=== PATIENT | male | born 1955 | race Caucasian/White ===

== ENCOUNTER 2017-04-25 23:18 | Emergency (ER) | payer MEDICARE, MEDICAID ==
[2017-04-26] MEDS ORDERED: LIDOCAINE 1% INJ-PF (10 MG/ML) 30 ML SDV INJ ONE (01:26)
[2017-04-26] MEDS ORDERED: ACETAMINOPHEN 325 MG TABLET PO ONE ×2 (01:27→08:00)
--- NOTE | 2017-04-26 03:24 | RADIOLOGY REPORT (SQ) ---
EXAM DESCRIPTION: TOE RIGHT CLINICAL HISTORY: pain and swelling COMPARISON: None. FINDINGS: 3 views of the right first toe. Osteopenia. Partial dorsal dislocation of the first distal phalanx with overlying soft tissue edema. No lytic osseous lesions. No definite fracture identified. IMPRESSION: 1. Partial dorsal dislocation of the right first distal phalanx with overlying soft tissue edema. No fracture identified.
[2017-04-26] MEDS ORDERED: CEPHALEXIN 500 MG CAPSULE PO ONE (03:49)
[2017-04-26] MEDS ORDERED: SULFAMETHOXAZOLE/TRIMETHOPRIM 800-160 MG TABLET PO ONE (03:49)
--- NOTE | 2017-04-26 03:49 | ER Document Report ---
ED Extremity Problem, Lower - General Chief Complaint: Toe Injury Stated Complaint: TOENAIL PAIN Time Seen by Provider: 04/26/17 01:01 Notes: Patient is a 62-year-old male who is a resident at [facility] he was sent over for an ingrown toenail on his right foot in his big toe. Patient states it has been there for a couple of days denies any fevers or chills. Admits to pain when he tries to walk and when it is touched. States he has been soaking it at his facility in warm water but staff wanted to have it evaluated this evening. TRAVEL OUTSIDE OF THE [place] IN LAST 30 DAYS: No - Related Data Allergies/Adverse Reactions: No Known Allergies Allergy (Unverified 07/11/13 00:54) Past Medical History - Social History Smoking Status: Unknown if Ever Smoked Family History: Reviewed & Not Pertinent, Other - unknown Patient has suicidal ideation: No Patient has homicidal ideation: No - Past Medical History Cardiac Medical History: Reports: Hx Hypertension - Low BP Pulmonary Medical History: Denies: Hx Tuberculosis Endocrine Medical History: Denies: Hx Graves' Disease, Hx Hyperthyroidism, Hx Hypothyroidism Renal/ Medical History: Reports: Hx Benign Prostatic Hyperplasia. Denies: Hx Peritoneal Dialysis GI Medical History: Reports: Hx Gastroesophageal Reflux Disease Psychiatric Medical History: Reports: Hx Schizoaffective Disorder, Hx Schizophrenia Past Surgical History: Denies: Hx Pacemaker - Immunizations Hx Diphtheria, Pertussis, Tetanus Vaccination: Yes Hx Pneumococcal Vaccination: 06/13/11 Review of Systems - Review of Systems -: Yes ROS unobtainable due to patient's medical condition Physical Exam - Vital signs Vitals: Temp Pulse BP Pulse Ox 98.0 F 67 126/86 H 98 04/25/17 23:28 04/25/17 23:28 04/25/17 23:28 04/25/17 23:28 - General General appearance: Appears well, Alert In distress: None - Cardiovascular Pulses: Normal: Dorsalis pedis Normal capillary refill: Yes - Extremities Foot: Tender, Deformity - Both distal phalanx of the great toe appear to be partially dorsally and medially dislocated and appears to be chronic., Nail injury - purulent material underneath the nailbed. nail with evidence of fungal infection. puncture wound on the tip of the toe with the entire toe erythemaous and swollen, Puncture wound. No: Unable to bear weight Course - Re-evaluation Re-evalutation: 04/26/17 01:30 Patient is a 62-year-old male who is hemodynamic stable, no acute distress and afebrile. No evidence of osteo-noted on x-ray with dislocation noted on x-ray which appears to be chronic given same presentation of the big toe on the unaffected foot. Nail trephination was performed given site to harbor bacteria with concerns of the puncture wound. Patient to perform warm soaks and discharged on antibiotics and to follow-up with podiatry. - Vital Signs Vital signs: Temp Pulse Resp BP Pulse Ox 97.8 F 76 18 128/80 H 94 04/26/17 07:59 04/26/17 07:59 04/26/17 07:59 04/26/17 07:59 04/26/17 07:59 - Diagnostic Test Radiology reviewed: Image reviewed, Reports reviewed Procedures - Nail Trephanation/Removal Right Great toe Nail Trepanation/Removal Location: right great toe Betadine prep applied: Yes Sterile Dressing Applied: Yes Discharge - Discharge Clinical Impression: Puncture wound, Injury of nail Condition: Good Disposition: HOME, SELF-CARE Instructions: Ingrown Nail ([facility]), Puncture Wound ([facility]) Additional Instructions: Simple avulsionsshould be soaked in warm water 24 to 48 hours after the procedure. Before removal of the dressing, I recommend that patients soak their digit in the shower or in a bowl to avoid bleeding and pain when the dressing is removed. A gelatinous film of epithelium is likely to appear over the exposed nail bed and can be gently removed with dilute hydrogen peroxide on a cotton-tipped applicator. The cotton tip should be rolled over the site gently, avoiding rubbing or vigorous attempts at tissue removal. A small amount of petrolatum or antibiotic ointment is placed on the tissue, then it is covered with an adhesive bandage for a simple avulsion or roller gauze. This dressing change should be repeated daily. Prescriptions: Cephalexin Monohydrate [Keflex 500 mg Capsule] 500 mg PO Q6H 5 Days capsule Sulfamethoxazole/Trimethoprim [Bactrim Ds Tablet] 1 each PO BID #10 tablet Referrals: SUMANTH OROZCO FNP [Primary Care Provider] - Follow up as needed KHAI VALDERRAMA DPM [ACTIVE STAFF] - Follow up in 3-5 days
[2017-04-26 08:16] VITALS: BP 128/80
== END 2017-04-26 08:50 | disposition home or self-care (01) ==
LOC: ER 23:18
PROC: 0HDRXZZ Extraction of Toe Nail, External Approach (ICD-10-PCS; principal; 2017-04-25)
DX: S91.231A Puncture wound without foreign body of right great toe with damage to nail, initial encounter (principal); X58.XXXA Exposure to other specified factors, initial encounter
CPT/HCPCS: 99283; 73660; 11730; A9270 ×3; J3490

== ENCOUNTER 2017-04-29 08:01 | Emergency (ER) | payer MEDICARE, MEDICAID ==
--- NOTE | 2017-04-29 08:35 | ER Document Report ---
ED Extremity Problem, Lower - General Chief Complaint: Toe Injury Stated Complaint: LEFT TOE PAIN Time Seen by Provider: 04/29/17 08:31 Notes: The patient is a 62-year-old male, past medical history schizophrenia, schizoaffective disorder, prior history of MRSA, presents from [facility] with evaluation for his right big toe. He was seen in the ER 4 days ago and started on Keflex for infected toenail. The patient says that his pain has improved slightly. [facility] staff also said that patient was altered, but EMS, who is familar with the patient, said that his mental status is at baseline. He is AAO 3 and has no other complaints. He denies fevers, increased drainage from the wound, streaking up his leg, headache, chest pain, shortness of breath, neck stiffness or back pain. TRAVEL OUTSIDE OF THE [place] IN LAST 30 DAYS: No - Related Data Allergies/Adverse Reactions: No Known Allergies Allergy (Verified 04/29/17 08:24) Past Medical History - General Information source: Patient - Social History Smoking Status: Unknown if Ever Smoked Family History: Reviewed & Not Pertinent, Other - unknown Patient has suicidal ideation: No Patient has homicidal ideation: No - Past Medical History Cardiac Medical History: Reports: Hx Hypertension - Low BP Pulmonary Medical History: Denies: Hx Tuberculosis Endocrine Medical History: Denies: Hx Graves' Disease, Hx Hyperthyroidism, Hx Hypothyroidism Renal/ Medical History: Reports: Hx Benign Prostatic Hyperplasia. Denies: Hx Peritoneal Dialysis GI Medical History: Reports: Hx Gastroesophageal Reflux Disease Psychiatric Medical History: Reports: Hx Schizoaffective Disorder, Hx Schizophrenia Past Surgical History: Denies: Hx Pacemaker - Immunizations Hx Diphtheria, Pertussis, Tetanus Vaccination: Yes Hx Pneumococcal Vaccination: 06/13/11 Review of Systems - Review of Systems Notes: REVIEW OF SYSTEMS: CONSTITUTIONAL: -fevers, -chills EENT: -eye pain, -difficulty swallowing, -nasal congestion CARDIOVASCULAR:-chest pain, -syncope. RESPIRATORY: -cough, -SOB GASTROINTESTINAL: -abdominal pain, -nausea, -vomiting, -diarrhea GENITOURINARY: -dysuria, -hematuria MUSCULOSKELETAL: -back pain, -neck pain, +right toenail pain SKIN: -rash or skin lesions. HEMATOLOGIC: -easy bruising or bleeding. LYMPHATIC: -swollen, enlarged glands. NEUROLOGICAL: -altered mental status or loss of consciousness, -headache, - neurologic symptoms PSYCHIATRIC: -anxiety, -depression. ALL OTHER SYSTEMS REVIEWED AND NEGATIVE. Physical Exam - Notes Notes: PHYSICAL EXAMINATION: GENERAL: Well-appearing, well-nourished and in no acute distress. HEAD: Atraumatic, normocephalic. EYES: Pupils equal round and reactive to light, extraocular movements intact, sclera anicteric, conjunctiva are normal. ENT: nares patent, oropharynx clear without exudates. Moist mucous membranes. NECK: Normal range of motion, supple without lymphadenopathy LUNGS: Breath sounds clear to auscultation bilaterally and equal. No wheezes rales or rhonchi. HEART: Regular rate and rhythm without murmurs ABDOMEN: Soft, nontender, normoactive bowel sounds. No guarding, no rebound. No masses appreciated. EXTREMITIES: Mild erythema around right 1st toe. Small amount of yellow drainage from toenail. No streaking of redness. Non-tender. NEUROLOGICAL: AAOx3. 5/5 strength in all 4 extremities. PSYCH: Normal mood, normal affect. SKIN: Warm, Dry, normal turgor, no rashes or lesions noted. Course - Re-evaluation Re-evalutation: Patient appears well and his vital signs are stable. He is AAO3 and has no other complaints other than his right toenail pain. It appears well and does not appear to have progressed into cellulitis. Looking through records 4 days ago, patient had a negative x-ray for osteomyelitis. His prior cultures grew out MRSA, so we will switch him from Keflex to Bactrim DS with strict return precautions. His mental status is at baseline and he has no focal neuro deficits. He does not appear to be septic. Discharge - Discharge Clinical Impression: Infection of toenail Condition: Stable Disposition: HOME, SELF-CARE Additional Instructions: Take the Bactrim instead of the Keflex to help with your toenail infection. Follow-up with your primary care physician. MRSA CELLULITIS: You have an infection of your skin and underlying soft tissues called cellulitis. This is due to bacteria, which can enter through any break in the skin, or even through an irritated hair follicle. Untreated, cellulitis will usually worsen and may form an abscess which requires draining. Although many bacterial organisms can cause cellulitis and abscess formations, the most likely bacteria is Methicillin-Resistant Staph Aureus, or MRSA for short. Antibiotics are required. Usually, warm packs or warm soaks, and elevation of the infected area are recommended. You should start getting better within 24 to 36 hours. Most infections respond quickly to the right medication. Follow-up care is important, however, to check for abscess (boil) formation, unsuspected foreign body, or resistant infection. If you develop fever, chills, or if the area of infection is becoming rapidly more swollen or painful, call the doctor at once. ANTIBIOTIC THERAPY: You have been given an antibiotic prescription. It's important that you take all the medication, unless instructed otherwise by your physician. Failure to complete the entire course can result in relapse of your condition. Common side effects of antibiotics include nausea, intestinal cramping, or diarrhea. Women may develop vaginal yeast infections, and babies can get yeast (thrush) in the mouth following the use of antibiotics. Contact your physician if you develop significant side effects from this medication. Allergy to this antibiotic can result in hives, wheezing, faintness, or itching. If symptoms of allergy occur, stop the medication and call the doctor. TRIMETHOPRIM-SULFA: You have been given a prescription for trimethoprim-sulfa (TMS, Septra, Bactrim). This is a combination antibiotic of the sulfa class, often used for urinary tract infections, middle ear infections, bronchitis, shigella intestinal infection, and Pneumocystis pneumonia. TMS is usually well-tolerated. Occasional side effects include nausea and decreased appetite. Septra is not recommended for infants less than two months of age. Do not take this medication if you have experienced severe side effects or allergy to sulfa medicine. You should stop this medicine at once and contact your physician if you develop any rash, joint pain, shortness of breath, bruising, or jaundice ( yellow color in the skin), or if you develop any other new or unusual symptoms. FOLLOW-UP CARE: If you have been referred to a physician for follow-up care, call the physician s office for an appointment as you were instructed or within the next two days. If you experience worsening or a significant change in your symptoms, notify the physician immediately or return to the Emergency Department at any time for re-evaluation. Prescriptions: Sulfamethoxazole/Trimethoprim [Bactrim Ds Tablet] 1 each PO BID 10 Days tablet Referrals: SUMANTH OROZCO FNP [Primary Care Provider] - Follow up as needed
[2017-04-29] MEDS ORDERED: SULFAMETHOXAZOLE/TRIMETHOPRIM 800-160 MG TABLET PO ONE (08:36)
[2017-04-29 09:21] VITALS: BP 109/71
== END 2017-04-29 09:21 | disposition home or self-care (01) ==
LOC: ER 08:01
DX: L08.9 Local infection of the skin and subcutaneous tissue, unspecified (principal); F25.9 Schizoaffective disorder, unspecified; Z86.14 Personal history of Methicillin resistant Staphylococcus aureus infection
CPT/HCPCS: 99284; A9270

== ENCOUNTER 2017-08-03 18:17 | Emergency (ER) | payer MEDICARE, MEDICAID ==
--- NOTE | 2017-08-03 18:55 | ER Document Report ---
ED Medical Screen (RME) - General Chief Complaint: Abdominal Pain Stated Complaint: ABDOMINAL PAIN Time Seen by Provider: 08/03/17 18:54 Notes: Patient is sent from assisted living facility with a history of abdominal pain and diarrhea. Patient states he feels better now and his abdominal pain is gone. On exam at triage patient no longer has abdominal pain. Patient is on lactulose. TRAVEL OUTSIDE OF THE [place] IN LAST 30 DAYS: No - Related Data Allergies/Adverse Reactions: No Known Allergies Allergy (Verified 08/03/17 18:19) Past Medical History - Past Medical History Cardiac Medical History: Reports: Hx Hypertension - Low BP Pulmonary Medical History: Denies: Hx Tuberculosis Endocrine Medical History: Denies: Hx Graves' Disease, Hx Hyperthyroidism, Hx Hypothyroidism Renal/ Medical History: Reports: Hx Benign Prostatic Hyperplasia. Denies: Hx Peritoneal Dialysis GI Medical History: Reports: Hx Gastroesophageal Reflux Disease Psychiatric Medical History: Reports: Hx Schizoaffective Disorder, Hx Schizophrenia Past Surgical History: Denies: Hx Pacemaker - Immunizations Hx Diphtheria, Pertussis, Tetanus Vaccination: Yes Physical Exam - Vital signs Vitals: Temp Pulse Resp BP Pulse Ox 97.5 F 63 16 108/67 99 08/03/17 18:32 08/03/17 18:32 08/03/17 18:32 08/03/17 18:32 08/03/17 18:32 Course - Vital Signs Vital signs: Temp Pulse Resp BP Pulse Ox 97.5 F 63 16 108/67 99 08/03/17 18:32 08/03/17 18:32 08/03/17 18:32 08/03/17 18:32 08/03/17 18:32
[2017-08-03 19:45] LABS: ABSOLUTE BASOPHILS # (AUTO) 0.1 10^3/uL (0.0-0.2); ABSOLUTE EOSINOPHILS # (AUTO) 0.1 10^3/uL (0.0-0.6); ABSOLUTE MONOCYTES (AUTO) 0.5 10^3/uL (0.1-1.4); ABSOLUTE NEUT (AUTO) 3.7 10^3/uL (1.7-8.2); BASOPHILS % (AUTO) 1.5 % (0-2); EOSINOPHILS % (AUTO) 2.2 % (0-6); HEMATOCRIT 39.5 % (37.9-51.0); HEMOGLOBIN 13.2 g/dL (13.5-17.0); LYMPHOCYTES % (AUTO) 30.7 % (13-45); MEAN CORPUSCULAR HEMOGLOBIN 29.5 pg (27.0-33.4); MEAN CORPUSCULAR HGB CONC 33.3 g/dL (32.0-36.0); MEAN CORPUSCULAR VOLUME 88 fl (80-97); MONOCYTES % (AUTO) 8.5 % (3-13); PLATELET COUNT 249 10^3/uL (150-450); RED BLOOD COUNT 4.47 10^6/uL (4.35-5.55); RED CELL DISTRIBUTION WIDTH 15.3 % (11.5-14.0); SEGMENTED NEUTROPHILS % (AUTO) 57.1 % (42-78); TOTAL CELLS COUNTED % (AUTO) 100 %; WHITE BLOOD COUNT 6.4 10^3/uL (4.0-10.5)
[2017-08-03 20:03] LABS: ALANINE AMINOTRANSFERASE 23 U/L (21-72); ALBUMIN 4.4 g/dL (3.5-5.0); ALKALINE PHOSPHATASE 83 U/L (38-126); ANION GAP 10 (5-19); ASPARTATE AMINO TRANSFERASE 15 U/L (17-59); BILIRUBIN,DIRECT 0.3 mg/dL (0.0-0.4); BILIRUBIN,TOTAL 0.3 mg/dL (0.2-1.3); BLOOD UREA NITROGEN 13 mg/dL (7-20); CALCIUM 9.6 mg/dL (8.4-10.2); CARBON DIOXIDE 29 mmol/L (22-30); CHLORIDE 105 mmol/L (98-107); GLUCOSE 99 mg/dL (75-110); POTASSIUM 4.4 mmol/L (3.6-5.0); SODIUM 144.4 mmol/L (137-145); TOTAL PROTEIN 7.7 g/dL (6.3-8.2)
[2017-08-03] MEDS ORDERED: DICYCLOMINE HCL INJ 20 MG/2 ML AMPULE IM PRN (23:52)
--- NOTE | 2017-08-04 00:04 | ER Document Report ---
ED General - General Mode of Arrival: Ambulatory Information source: Patient TRAVEL OUTSIDE OF THE [place] IN LAST 30 DAYS: No <KODY LAWLER - Last Filed: 08/04/17 01:12> <TRACEY EPPS - Last Filed: 08/04/17 03:49> - General Chief Complaint: Abdominal Pain Stated Complaint: ABDOMINAL PAIN Time Seen by Provider: 08/03/17 18:54 Notes: Patient is a 62-year-old male with a history of schizophrenia presents to the emergency department from [facility] complaining of abdominal pain onset today. Upon arrival to the emergency department the patient states that he was no longer having any abdominal pain. At bedside patient specifically states that his "insides hurt". When asked when his last bowel movement was patient states he is unsure. (KODY LAWLER) - Related Data Allergies/Adverse Reactions: No Known Allergies Allergy (Verified 08/03/17 18:19) Past Medical History - General Information source: Patient - Social History Smoking Status: Unknown if Ever Smoked Family History: Reviewed & Not Pertinent, Other - unknown Patient has suicidal ideation: No Patient has homicidal ideation: No - Past Medical History Cardiac Medical History: Reports: Hx Hypertension - Low BP Renal/ Medical History: Reports: Hx Benign Prostatic Hyperplasia GI Medical History: Reports: Hx Gastroesophageal Reflux Disease Psychiatric Medical History: Reports: Hx Schizoaffective Disorder, Hx Schizophrenia - Immunizations Hx Diphtheria, Pertussis, Tetanus Vaccination: Yes Hx Pneumococcal Vaccination: 06/13/11 <KODY LAWLER - Last Filed: 08/04/17 01:12> Review of Systems - Review of Systems Constitutional: No symptoms reported EENT: No symptoms reported Cardiovascular: No symptoms reported Respiratory: No symptoms reported Gastrointestinal: See HPI, Abdominal pain Genitourinary: No symptoms reported Male Genitourinary: No symptoms reported Musculoskeletal: No symptoms reported Skin: No symptoms reported Hematologic/Lymphatic: No symptoms reported Neurological/Psychological: No symptoms reported -: Yes All other systems reviewed and negative <KODY LAWLER - Last Filed: 08/04/17 01:12> Physical Exam <KODY LAWLER - Last Filed: 08/04/17 01:12> <TRACEY EPPS - Last Filed: 08/04/17 03:49> - Vital signs Vitals: Temp Pulse Resp BP Pulse Ox 97.5 F 63 16 108/67 99 08/03/17 18:32 08/03/17 18:32 08/03/17 18:32 08/03/17 18:32 08/03/17 18:32 - Notes Notes: GENERAL: Alert, interacts well. No acute distress. HEAD: Normocephalic, atraumatic. EYES: Pupils equal, round, and reactive to light. Extraocular movements intact. ENT: Oral mucosa moist, tongue midline. NECK: Full range of motion. Supple. Trachea midline. LUNGS: Clear to auscultation bilaterally, no wheezes, rales, or rhonchi. No respiratory distress. HEART: Regular rate and rhythm. No murmurs, gallops, or rubs. ABDOMEN: Soft, non-tender. Non-distended. Bowel sounds present in all 4 quadrants. Patient does not flinch when pressing on his abdomen. EXTREMITIES: Moves all 4 extremities spontaneously. NEUROLOGICAL: Alert and oriented x3. Normal speech. PSYCH: Normal affect, normal mood. SKIN: Warm, dry, normal turgor. No rashes or lesions noted. (KODY LAWLER) Course - Laboratory Result Diagrams: 08/03/17 19:36 08/03/17 19:36 <KODY LAWLER - Last Filed: 08/04/17 01:12> - Laboratory Result Diagrams: 08/03/17 19:36 08/03/17 19:36 <TRACEY EPPS - Last Filed: 08/04/17 03:49> - Re-evaluation Re-evalutation: 08/04/17 00:33 Patient well-appearing found to have nonspecific bowel gas pattern. Will provide MiraLAX and simethicone. Return precautions provided 08/04/17 00:41 Patient urine shows signs of urinary tract infection will provide 7 days of Keflex (TRACEY EPPS) - Vital Signs Vital signs: Temp Pulse Resp BP Pulse Ox 97.5 F 63 16 108/67 99 08/03/17 18:32 08/03/17 18:32 08/03/17 18:32 08/03/17 18:32 08/03/17 18:32 - Laboratory Laboratory results interpreted by me: 08/03/17 08/03/17 08/03/17 19:36 19:36 23:57 Hgb 13.2 L RDW 15.3 H AST 15 L Urine Blood SMALL H Urine Urobilinogen 2.0 H Ur Leukocyte Esterase LARGE H Discharge <KODY LAWLER - Last Filed: 08/04/17 01:12> <TRACEY EPPS - Last Filed: 08/04/17 03:49> - Discharge Clinical Impression: Abdominal pain Qualifiers: Abdominal location: unspecified location Qualified Code(s): R10.9 - Unspecified abdominal pain Urinary tract infection Qualifiers: Urinary tract infection type: site unspecified Hematuria presence: without hematuria Qualified Code(s): N39.0 - Urinary tract infection, site not specified Condition: Good Disposition: HOME, SELF-CARE Instructions: Abdominal Pain ([facility]), Cephalexin ([facility]) Additional Instructions: Found copious amounts of bowel gas on x-ray. Please use medications as prescribed. If symptoms persist or worsen please be evaluated by a medical professional. Prescriptions: Cephalexin Monohydrate [Keflex 500 mg Capsule] 500 mg PO QID 7 Days #28 capsule Polyethylene Glycol 3350 [Miralax Powder 17 gm/Packet] 1 packet PO DAILY #30 pkg Simethicone 180 mg PO BID PRN #30 capsule PRN Reason: Scribe Attestation: 08/04/17 03:49 I personally performed the services described documentation, reviewed and edited the documentation which was dictated to describe my presence, and it accurately records my words and actions. (TRACEY EPPS) Scribe Documentation - Scribe Written by Scribe:: Anju Krueger, 08/04/2017 00:04 acting as scribe for :: Scottie <KODY LAWLER - Last Filed: 08/04/17 01:12>
--- NOTE | 2017-08-04 00:18 | RADIOLOGY REPORT (SQ) ---
EXAM DESCRIPTION: KUB/ABDOMEN (SINGLE VIEW) CLINICAL HISTORY: abd pain COMPARISON: 02/11/2016 FINDINGS: Single view of the abdomen. Moderate amount stool. Air-filled loops of nondilated large and small bowel. Degenerative change of the spine. No acute osseous abnormalities. Atherosclerotic vascular calcification. No definite free intraperitoneal air. IMPRESSION: Nonobstructive bowel gas pattern.
[2017-08-04 00:34] LABS: AMORPHOUS SEDIMENT,URINE TRACE /HPF; APPEARANCE,URINE CLOUDY; BILIRUBIN,URINE NEGATIVE (NEGATIVE); COLOR,URINE YELLOW; GLUCOSE, URINE NEGATIVE (NEGATIVE); KETONES,URINE NEGATIVE (NEGATIVE); LEUKOCYTE ESTERASE,URINE LARGE (NEGATIVE); NITRITE,URINE NEGATIVE (NEGATIVE); PROTEIN,URINE NEGATIVE (NEGATIVE)
[2017-08-04 07:37] VITALS: BP 127/74
== END 2017-08-04 07:37 | disposition home or self-care (01) ==
LOC: ER 18:17
DX: N39.0 Urinary tract infection, site not specified (principal); R10.9 Unspecified abdominal pain; Z87.19 Personal history of other diseases of the digestive system
CPT/HCPCS: 99284; 96372; 36415; 85025; 80053; 81001; 74018; J0500

== ENCOUNTER 2017-11-30 10:38 | Inpatient (IN) | payer MEDICARE, MEDICAID ==
--- NOTE | 2017-11-30 11:09 | ER Document Report ---
ED General - General Stated Complaint: WEAKNESS Time Seen by Provider: 11/30/17 10:47 Mode of Arrival: Medic Information source: Emergency Med Personnel Notes: This is a 62-year-old man with a history of schizophrenia and adrenal insufficiency that was brought in by EMS from the [facility]. Patient reportedly was choking on a [place] and chest thrust were delivered by staff at the [facility]. When EMS arrived, his airway was clear, but he seemed lethargic and his blood pressure was 72/50. Patient does seem lethargic in the emergency room. He has complained of constipation and difficulty urinating. He denies shortness of breath. TRAVEL OUTSIDE OF THE [place] IN LAST 30 DAYS: No - HPI Onset: Just prior to arrival Onset/Duration: Sudden Quality of pain: No pain Severity: None Pain Level: Denies Associated symptoms: denies: Chest pain, Shortness of breath Exacerbated by: Denies Relieved by: Denies Similar symptoms previously: No Recently seen / treated by doctor: No - Related Data Allergies/Adverse Reactions: sertraline [From Zoloft] Allergy (Verified 08/04/17 05:49) Past Medical History - General Information source: Emergency Med Personnel - Social History Smoking Status: Never Smoker Cigarette use (# per day): No Chew tobacco use (# tins/day): No Frequency of alcohol use: None Drug Abuse: None Lives with: Family Family History: Reviewed & Not Pertinent, Other - unknown Patient has suicidal ideation: No Patient has homicidal ideation: No - Past Medical History Cardiac Medical History: Reports: Hx Hypertension - Low BP Pulmonary Medical History: Denies: Hx Tuberculosis Endocrine Medical History: Denies: Hx Graves' Disease, Hx Hyperthyroidism, Hx Hypothyroidism Renal/ Medical History: Reports: Hx Benign Prostatic Hyperplasia. Denies: Hx Peritoneal Dialysis GI Medical History: Reports: Hx Gastroesophageal Reflux Disease Psychiatric Medical History: Reports: Hx Schizoaffective Disorder, Hx Schizophrenia Past Surgical History: Denies: Hx Pacemaker - Immunizations Hx Diphtheria, Pertussis, Tetanus Vaccination: Yes Hx Pneumococcal Vaccination: 06/13/11 Review of Systems - Review of Systems Constitutional: denies: Chills, Fever EENT: No symptoms reported Cardiovascular: See HPI Respiratory: See HPI Gastrointestinal: No symptoms reported Genitourinary: No symptoms reported Male Genitourinary: No symptoms reported Musculoskeletal: No symptoms reported Skin: No symptoms reported Hematologic/Lymphatic: No symptoms reported Neurological/Psychological: No symptoms reported Physical Exam - Vital signs Vitals: Resp BP Pulse Ox 11 L 99/66 L 95 11/30/17 10:52 11/30/17 10:52 11/30/17 10:52 Notes: Physical exam: GENERAL: 62-year-old man, lethargic, no acute distress, he does seem to know where he is HEAD: Atraumatic, normocephalic. EYES: Pupils equal round and reactive to light, extraocular movements intact, sclera anicteric, conjunctiva are normal. ENT: oropharynx clear without exudates. Dry mucous membranes. NECK: Normal range of motion, supple without obvious mass or JVD. LUNGS: Breath sounds clear to auscultation bilaterally and equal. No wheezes rales or rhonchi. HEART: Regular rate and rhythm without murmurs, rubs or gallops. ABDOMEN: Soft, normoactive bowel sounds. No tenderness to palpation. No guarding, no rebound. No masses appreciated. Suprapubic area is distended Rectal: Brown stool, sent for study EXTREMITIES: Normal range of motion, no pitting or edema. No clubbing or cyanosis. NEUROLOGICAL: Patient is answering questions, moving all extremities PSYCH: Normal mood, normal affect. SKIN: Warm, Dry, normal turgor, no rashes or lesions noted. Course - Re-evaluation Re-evalutation: 11/30/17 13:27 Note: The patient was brought in after a choking episode. He was noticed to be hypotensive and clinically he appeared very dehydrated. Chest x-ray does show a left lower lobe infiltrate which is concerning for aspiration. The concern is that this will blossom once he is given IV fluids for his dehydration. He was given IV cefepime for the pneumonia as well as IV hydrocortisone for his adrenal insufficiency. I did speak with Dr. Hoyt said he is not followed the patient for several years since going into the [facility] and that he should be the hospitalist service. I presented the case to Dr. Velasquez we will admit him. 11/30/17 13:31 Note: EKG shows atrial fibrillation (initially at a rate of 120), his heart rate now is 105. We are treating the rate with fluids at this time. It is unclear whether this A. fib is recent. The last EKG is over 4 years ago. - Vital Signs Vital signs: Temp Pulse Resp BP Pulse Ox 97.6 F 18 113/71 97 11/30/17 14:45 11/30/17 14:45 11/30/17 14:45 11/30/17 14:45 - Laboratory Result Diagrams: 11/30/17 11:25 11/30/17 11:25 Laboratory results interpreted by me: 11/30/17 11/30/17 11/30/17 11:10 11:25 11:25 RBC 4.27 L Hgb 12.5 L Hct 37.4 L RDW 14.2 H Sodium 145.1 H Potassium 3.3 L AST 14 L ALT 18 L Ur Leukocyte Esterase LARGE H - Diagnostic Test Radiology reviewed: Image reviewed, Reports reviewed - Left lower lobe infiltrate - EKG Interpretation by Me Rate: Tachycardia Rhythm: A.Fib - EKG shows atrial fibrillation with a ventricular rate of 1 he, old inferior wall PA, poor R-wave progression, no acute ST elevations or depressions Critical Care Note - Critical Care Note Total time excluding time spent on procedures (mins): 60 Discharge - Discharge Clinical Impression: Pneumonia, Adrenal insufficiency, Atrial fibrillation Condition: Stable Disposition: ADMITTED INPATIENT Admitting Provider: Hospitalist - [facility] Unit Admitted: Telemetry
[2017-11-30] MEDS ORDERED: HYDROCORTISONE SOD SUCCINATE INJ/PF 100 MG/2 ML SDV IV ONE (11:37)
[2017-11-30] MEDS ORDERED: NORMAL SALINE 1000 ML 1,000 ML IV PRN (11:37)
[2017-11-30 11:39] LABS: APPEARANCE,URINE CLOUDY; BILIRUBIN,URINE NEGATIVE (NEGATIVE); COLOR,URINE YELLOW; GLUCOSE, URINE NEGATIVE (NEGATIVE); KETONES,URINE NEGATIVE (NEGATIVE); LEUKOCYTE ESTERASE,URINE LARGE (NEGATIVE); NITRITE,URINE NEGATIVE (NEGATIVE); PROTEIN,URINE NEGATIVE (NEGATIVE); URINE SPECIFIC GRAVITY 1.009; UROBILINOGEN,URINE NEGATIVE mg/dL (<2.0)
[2017-11-30 11:44] LABS: VENOUS BLOOD BASE EXCESS 0.6 mmol/L; VENOUS BLOOD PCO2 57.5 mmHg (35-63); VENOUS BLOOD PH 7.31 (7.30-7.42)
[2017-11-30 11:48] LABS: ABSOLUTE EOSINOPHILS # (AUTO) 0.1 10^3/uL (0.0-0.6); ABSOLUTE LYMPHOCYTES (AUTO) 1.1 10^3/uL (0.5-4.7); ABSOLUTE MONOCYTES (AUTO) 0.5 10^3/uL (0.1-1.4); ABSOLUTE NEUT (AUTO) 4.4 10^3/uL (1.7-8.2); BASOPHILS % (AUTO) 0.7 % (0-2); EOSINOPHILS % (AUTO) 1.7 % (0-6); HEMATOCRIT 37.4 % (37.9-51.0); HEMOGLOBIN 12.5 g/dL (13.5-17.0); LYMPHOCYTES % (AUTO) 18.5 % (13-45); MEAN CORPUSCULAR HEMOGLOBIN 29.4 pg (27.0-33.4); MEAN CORPUSCULAR HGB CONC 33.5 g/dL (32.0-36.0); MEAN CORPUSCULAR VOLUME 88 fl (80-97); MONOCYTES % (AUTO) 8.5 % (3-13); PLATELET COUNT 163 10^3/uL (150-450); RED BLOOD COUNT 4.27 10^6/uL (4.35-5.55); RED CELL DISTRIBUTION WIDTH 14.2 % (11.5-14.0); SEGMENTED NEUTROPHILS % (AUTO) 70.6 % (42-78); TOTAL CELLS COUNTED % (AUTO) 100 %; WHITE BLOOD COUNT 6.2 10^3/uL (4.0-10.5)
[2017-11-30 11:51] LABS: INTERNATIONAL RATION (INR) 1.05; PARTIAL THROMBOPLASTIN TIME 27.6 SEC (23.5-35.8); PROTHROMBIN TIME 14.2 SEC (11.4-15.4)
--- NOTE | 2017-11-30 12:07 | RADIOLOGY REPORT (SQ) ---
EXAM DESCRIPTION: CHEST SINGLE VIEW portable COMPLETED DATE/TIME: 11/30/2017 11:53 am REASON FOR STUDY: sob COMPARISON: 2012 EXAM PARAMETERS: NUMBER OF VIEWS: One view. TECHNIQUE: Single frontal radiographic view of the chest acquired. RADIATION DOSE: NA LIMITATIONS: None. FINDINGS: LUNGS AND PLEURA: Interstitial prominence of the lung padilla with slight patchy infiltrate LLL. MEDIASTINUM AND HILAR STRUCTURES: No masses. Contour normal. HEART AND VASCULAR STRUCTURES: Heart normal in size. Normal vasculature. BONES: Stable deformity right 3rd rib. Scoliosis thoracic spine. HARDWARE: None in the chest. OTHER: No other significant finding. IMPRESSION: Interstitial prominence of the lung padilla with slight patchy infiltrate LLL. TECHNICAL DOCUMENTATION: JOB ID: [id number] [employer]- All Rights Reserved Reading location - IP/workstation name: [email or web address]
[2017-11-30 12:11] LABS: ALANINE AMINOTRANSFERASE 18 U/L (21-72); ALBUMIN 3.8 g/dL (3.5-5.0); ALKALINE PHOSPHATASE 50 U/L (38-126); ANION GAP 11 (5-19); ASPARTATE AMINO TRANSFERASE 14 U/L (17-59); BILIRUBIN,DIRECT 0.3 mg/dL (0.0-0.4); BILIRUBIN,TOTAL 0.4 mg/dL (0.2-1.3); BLOOD UREA NITROGEN 13 mg/dL (7-20); CALCIUM 8.9 mg/dL (8.4-10.2); CARBON DIOXIDE 27 mmol/L (22-30); CHLORIDE 107 mmol/L (98-107); GLUCOSE 78 mg/dL (75-110); POTASSIUM 3.3 mmol/L (3.6-5.0); SODIUM 145.1 mmol/L (137-145); TOTAL PROTEIN 6.4 g/dL (6.3-8.2)
[2017-11-30 12:17] LABS: FREE T3 3.42 pg/mL (2.77-5.27); FREE T4 (FREE THYROXINE) 0.96 ng/dL (0.78-2.19)
[2017-11-30] MEDS ORDERED: CEFEPIME 1 GM/D5W RTU 1 GM/50 ML RTUPB IV ONE (12:28)
[2017-11-30 12:30] LABS: THYROID STIMULATING HORMONE 2.12 uIU/mL (0.47-4.68)
--- NOTE | 2017-11-30 12:44 | RADIOLOGY REPORT (SQ) ---
EXAM DESCRIPTION: CT HEAD WITHOUT COMPLETED DATE/TIME: 11/30/2017 12:14 pm REASON FOR STUDY: altered mental status COMPARISON: 2011 TECHNIQUE: Axial images acquired through the brain without intravenous contrast. Images reviewed wi th bone, brain and subdural windows. Images stored on PACS. All CT scanners at this facility use dose modulation, iterative reconstruction, and/or weight based d osing when appropriate to reduce radiation dose to as low as reasonably achievable (ALARA). [facility]: Dose Right [facility]: CareDose [facility]: Dose Right [facility]: Teradose 4D [facility]: HouseFix RADIATION DOSE: CT Rad equipment meets quality standard of care and radiation dose reduction techniq ues were employed. CTDIvol: 53.2 mGy. DLP: 1150 mGy-cm. mGy. LIMITATIONS: None. FINDINGS: VENTRICLES: Normal size and contour. CEREBRUM: No masses. No hemorrhage. No midline shift. No evidence for acute infarction. Normal gra y/white matter differentiation. No areas of low density in the white matter. Minor atrophic changes. CEREBELLUM: No masses. No hemorrhage. No alteration of density. No evidence for acute infarction. EXTRAAXIAL SPACES: No fluid collections. No masses. ORBITS AND GLOBE: No intra- or extraconal masses. Normal contour of globe without masses. CALVARIUM: No fracture. PARANASAL SINUSES: No fluid or mucosal thickening. SOFT TISSUES: No mass or hematoma. OTHER: No other significant finding. IMPRESSION: NORMAL BRAIN CT WITHOUT CONTRAST. EVIDENCE OF ACUTE STROKE: NO. COMMENT: Quality ID # [id number]: Final reports with documentation of one or more dose reduction techniques (e.g., Automated exposure control, adjustment of the mA and/or kV according to patient size, use of iterative reconstruction technique) TECHNICAL DOCUMENTATION: JOB ID: [id number] [employer]- All Rights Reserved Reading location - IP/workstation name: [email or web address]
[2017-11-30] MEDS ORDERED: POTASSIUM CHLORIDE 10 MEQ TABLET.SA PO ONE (13:26)
[2017-11-30] MEDS ORDERED: ALBUTEROL SULFATE 0.083% NEB 2.5 MG/3 ML AMPUL NEB PRN (13:52)
--- NOTE | 2017-11-30 14:16 | PDOC H&P ---
History of Present Illness Admission Date/PCP: 11/30/17 13:34 SAAD MEDRANO MD Patient complains of: "I 'bout [place]" History of Present Illness: EARNEST HONEYCUTT is a 62 year old male with a history of schizophrenia who resides in a group facility who apparently had a choking episode at the facility earlier today. He apparently went somewhat lethargic and his blood pressure was checked and found to be very low with a systolic in the 70s. He was brought in to the ER and he was given IV fluids and his blood pressure responded. He was initially also noted to be hypoxemic but his oxygen saturations were back up in the upper 90s on room air with the oxygen off to the side of his head and he was talking quite a bit in his usual dysarthric manner. Because of his chronic condition, he does not have very good recall of his medical history and the only thing he kept saying to me consistently was "I 'bout [place]." Past Medical History Cardiac Medical History: Reports: Hypertension - Low BP Pulmonary Medical History: Denies: Tuberculosis Neurological Medical History: Reports: Seizures Endocrine Medical History: Denies: Hyperthyroidism, Hypothyroidism GI Medical History: Reports: Gastroesophageal Reflux Disease Psychiatric Medical History: Reports: Depression, Schizoaffective Disorder Past Surgical History Past Surgical History: Denies: Pacemaker Social History Smoking Status: Former Smoker Frequency of Alcohol Use: None Hx Recreational Drug Use: No Hx Prescription Drug Abuse: No Family History Family History: Reviewed & Not Pertinent - Unable to adequately obtain due to the patient's baseline mental status, Other - unknown Parental Family History Reviewed: No - Unable to obtain due to the patient's baseline mental status Children Family History Reviewed: NA Sibling(s) Family History Reviewed.: NA Medication/Allergy Home Medications: Lactulose [Kristalose 10 gm Packet] 15 ml PO DAILY 04/24/12 Magnesium Oxide 400 mg PO TID PRN 04/24/12 Prednisone 10 mg PO QPM 04/24/12 Prednisone 15 mg PO QAM 04/24/12 Tamsulosin HCl [Flomax 0.4 mg Cap.sr] 0.4 mg PO DAILY 04/24/12 Acetaminophen [Tylenol 325 mg Tablet] 650 mg PO Q8H PRN 04/25/12 Benztropine Mesylate [Cogentin 1 mg Tablet] 1 mg PO Q12 #0 tablet 06/09/12 Clonazepam [Klonopin 1 mg Tablet] 1 mg PO Q12 #0 tablet 06/09/12 Risperidone [Risperdal M-Tab 1 mg Odt Tablet] 1 mg PO Q12 #0 tab.rapdis Esomeprazole Magnesium [Nexium] 40 mg PO DAILY 07/11/13 Fludrocortisone Acetate [Florinef 0.1 mg Tablet] 0.2 mg PO DAILY 07/11/13 Mirtazapine 30 mg PO QHS 07/11/13 Ciprofloxacin HCl [Cipro 500 mg Tablet] 500 mg PO BID #10 tablet 05/31/15 Docusate Sodium [Colace 100 mg Capsule] 100 mg PO BID #60 capsule 05/31/15 Polyethylene Glycol 3350 [Miralax Powder 17 gm/Packet] 1 packet PO BID #1 pkg Zinc Oxide 1 gm TP ASDIR PRN #1 oint..gm. 02/11/16 Cephalexin Monohydrate [Keflex 500 mg Capsule] 500 mg PO Q6H 5 Days capsule Sulfamethoxazole/Trimethoprim [Bactrim Ds Tablet] 1 each PO BID #10 tablet 04/26 Sulfamethoxazole/Trimethoprim [Bactrim Ds Tablet] 1 each PO BID 10 Days tablet 04/29/17 Cephalexin Monohydrate [Keflex 500 mg Capsule] 500 mg PO QID 7 Days #28 capsule 08/04/17 Polyethylene Glycol 3350 [Miralax Powder 17 gm/Packet] 1 packet PO DAILY #30 pkg 08/04/17 Simethicone 180 mg PO BID PRN #30 capsule 08/04/17 Allergies/Adverse Reactions: sertraline [From Zoloft] Allergy (Verified 08/04/17 05:49) Review of Systems ROS unobtainable: Due to mental status Physical Exam Vital Signs: Temp Pulse Resp BP Pulse Ox 97.3 F 17 105/65 99 11/30/17 13:46 11/30/17 13:46 11/30/17 13:46 11/30/17 13:46 General appearance: PRESENT: no acute distress, cooperative, other - Unable to provide much history because of his baseline mental status, he displayed a sort of dyskinesia throughout the exam but was able to speak in his typical dysarthric manner Head exam: PRESENT: atraumatic, normocephalic Eye exam: ABSENT: periorbital swelling, scleral icterus Mouth exam: PRESENT: moist, neck supple Teeth exam: PRESENT: edentulous Throat exam: PRESENT: other - Unable to examine due to patient's inability to comply Neck exam: ABSENT: carotid bruit, JVD, tenderness, thyromegaly Respiratory exam: PRESENT: clear to auscultation isidro, unlabored. ABSENT: accessory muscle use, chest wall tenderness, crackles, rales, rhonchi, wheezes Cardiovascular exam: PRESENT: RRR. ABSENT: clicks, diastolic murmur, gallop, rubs, systolic murmur Pulses: PRESENT: normal radial pulses, normal femoral pulses Vascular exam: PRESENT: normal capillary refill GI/Abdominal exam: PRESENT: normal bowel sounds, soft. ABSENT: ascites, distended, guarding, rebound, tenderness Rectal exam: PRESENT: deferred Extremities exam: ABSENT: joint swelling, pedal edema Musculoskeletal exam: PRESENT: normal inspection. ABSENT: deformity Neurological exam: PRESENT: alert, awake, other - Unable to get a satisfactory exam due to the patient's inability to comply Skin exam: PRESENT: dry, warm Results Impressions: Chest X-Ray 11/30/17 10:48 IMPRESSION: Interstitial prominence of the lung padilla with slight patchy infiltrate LLL. Head CT 11/30/17 10:48 IMPRESSION: NORMAL BRAIN CT WITHOUT CONTRAST. EVIDENCE OF ACUTE STROKE: NO. Assessment & Plan - Diagnosis (1) Aspiration pneumonitis Is this a current diagnosis for this admission?: Yes Plan: Start Zosyn. If he looks good tomorrow we will transition him to Avelox and send him home. Blood cultures were drawn. Vital signs have quickly and completely return to normal. (2) Hypotension Qualifiers: Hypotension type: unspecified hypotension type Qualified Code(s): I95.9 - Hypotension, unspecified Is this a current diagnosis for this admission?: Yes Plan: Resolved. I suspect this was a transient issue. His blood pressures are back up in the 110s without any fluid or pressor support. (3) Schizophrenia Qualifiers: Schizophrenia type: unspecified Qualified Code(s): F20.9 - Schizophrenia, unspecified Is this a current diagnosis for this admission?: Yes Plan: Continue his home medications. (4) Adrenal insufficiency Is this a current diagnosis for this admission?: Yes Plan: He got a dose of hydrocortisone in the ER. We will continue his fludrocortisone. I do not think he is going to need any stress dose steroids.
[2017-11-30] MEDS ORDERED: ENOXAPARIN SODIUM INJ 40 MG/0.4 ML DISP.SYRIN SUBCUT ONE (16:00)
[2017-11-30] MEDS: RINGERS SOLUTION,LACTATED 1,000 ML IV PRN (16:37)
[2017-11-30] MEDS: DOCUSATE SODIUM 100 MG CAPSULE PO SCH (19:18)
[2017-11-30] MEDS: PIPERACILLIN SODIUM/TAZOBACTAM 3.375 GM in NORMAL SALINE 100 ML IV SCH ×2 (19:19→23:13)
[2017-11-30] MEDS: POLYETHYLENE GLYCOL 3350 POWDER 17 GM/1 PACKET PO SCH (19:20)
--- NOTE | 2017-11-30 22:23 | EKG REPORT ---
SEVERITY:- ABNORMAL ECG - ATRIAL FIBRILLATION, V-RATE 75-133 MULTIPLE VENTRICULAR PREMATURE COMPLEXES LAD, CONSIDER LAFB OR INFERIOR INFARCT PROBABLE RIGHT VENTRICULAR HYPERTROPHY BORDERLINE PROLONGED QT INTERVAL : Confirmed by: Phi Costa 30-Nov-2017 22:23:01
[2017-11-30] MEDS: CLONAZEPAM 1 MG TABLET PO SCH (22:48)
[2017-11-30] MEDS ORDERED: RISPERIDONE 1 MG TABLET ONE (23:00)
[2017-11-30] MEDS: FAMOTIDINE 20 MG TABLET PO SCH (23:12)
[2017-11-30] MEDS: BENZTROPINE MESYLATE 1 MG TABLET PO SCH (23:12)
[2017-11-30] MEDS: RISPERIDONE 1 MG TAB.RAPDIS PO SCH (23:14)
[2017-12-01] MEDS ORDERED: CLONAZEPAM 1 MG TABLET PO ONE (03:15)
[2017-12-01] MEDS: PIPERACILLIN SODIUM/TAZOBACTAM 3.375 GM in NORMAL SALINE 100 ML IV SCH ×2 (05:08→13:48)
[2017-12-01] MEDS: RINGERS SOLUTION,LACTATED 1,000 ML IV PRN (05:09)
[2017-12-01] MEDS ORDERED: LANSOPRAZOLE 30 MG TAB.RAP.DR PO SCH (06:00)
[2017-12-01 06:39] LABS: HEMATOCRIT 37.5 % (37.9-51.0); HEMOGLOBIN 12.6 g/dL (13.5-17.0); MEAN CORPUSCULAR HEMOGLOBIN 29.6 pg (27.0-33.4); MEAN CORPUSCULAR HGB CONC 33.7 g/dL (32.0-36.0); MEAN CORPUSCULAR VOLUME 88 fl (80-97); PLATELET COUNT 175 10^3/uL (150-450); RED BLOOD COUNT 4.27 10^6/uL (4.35-5.55); RED CELL DISTRIBUTION WIDTH 14.5 % (11.5-14.0); WHITE BLOOD COUNT 9.7 10^3/uL (4.0-10.5)
[2017-12-01 07:06] LABS: ANION GAP 12 (5-19); BLOOD UREA NITROGEN 12 mg/dL (7-20); CALCIUM 9.2 mg/dL (8.4-10.2); CARBON DIOXIDE 25 mmol/L (22-30); CHLORIDE 111 mmol/L (98-107); GLUCOSE 87 mg/dL (75-110); POTASSIUM 3.9 mmol/L (3.6-5.0)
[2017-12-01] MEDS ORDERED: FLUDROCORTISONE ACETATE 0.1 MG TABLET PO SCH (10:00)
[2017-12-01] MEDS ORDERED: ENOXAPARIN SODIUM INJ 40 MG/0.4 ML DISP.SYRIN SUBCUT SCH (10:00)
[2017-12-01] MEDS: CLONAZEPAM 1 MG TABLET PO SCH (10:43)
[2017-12-01] MEDS: POLYETHYLENE GLYCOL 3350 POWDER 17 GM/1 PACKET PO SCH (10:43)
[2017-12-01] MEDS: BENZTROPINE MESYLATE 1 MG TABLET PO SCH (10:43)
[2017-12-01] MEDS: DOCUSATE SODIUM 100 MG CAPSULE PO SCH (10:43)
[2017-12-01] MEDS: FAMOTIDINE 20 MG TABLET PO SCH (10:43)
[2017-12-01] MEDS: RISPERIDONE 1 MG TAB.RAPDIS PO SCH (10:49)
[2017-12-01] MEDS ORDERED: RISPERIDONE 1 MG TAB.RAPDIS PO ONE (11:30)
--- NOTE | 2017-12-01 12:10 | PDOC DISCHARGE SUMMARY ---
General - Admit/Disc Date/PCP Admission Date/Primary Care Provider: 11/30/17 13:34 SAAD MEDRANO MD Discharge Date: 12/01/17 - Discharge Diagnosis (1) Aspiration pneumonitis Is this a current diagnosis for this admission?: Yes Summary: He choked on something at home and will finish 5 days of antibiotic for an aspiration pneumonitis. His oxygen saturations have been good here and he has not had any cough. His vital signs have been stable. He has been eating and drinking a modified diet without difficulty. (2) Hypotension Is this a current diagnosis for this admission?: Yes Summary: This had resolved before he will ever left the emergency department. It was transient and possibly a vagal response. (3) Schizophrenia Is this a current diagnosis for this admission?: Yes Summary: This is remained stable he will continue his usual medications. (4) Adrenal insufficiency Is this a current diagnosis for this admission?: Yes Summary: This is remains stable he will continue his fludrocortisone. - Additional Information Resuscitation Status: Full Code Discharge Diet: Other (Comments) - resume previous, but recommend mechanical soft consistency with thin liquids Discharge Activity: Other - resume previous level Prescriptions: Moxifloxacin HCl 400 mg PO DAILY #5 tablet Home Medications: Acetaminophen [Tylenol 325 mg Tablet] 650 mg PO Q8H PRN 04/25/12 Benztropine Mesylate [Cogentin 1 mg Tablet] 1 mg PO Q12 #0 tablet 06/09/12 Clonazepam [Klonopin 1 mg Tablet] 1 mg PO Q12 #0 tablet 06/09/12 Fludrocortisone Acetate [Florinef 0.1 mg Tablet] 0.2 mg PO MOWEFR@0600 07/11/13 Mirtazapine 30 mg PO QHS 07/11/13 Alfuzosin HCl [Alfuzosin HCl ER] 10 mg PO QPM 11/30/17 Lactulose [Constulose] 15 ml PO QAM 11/30/17 Linaclotide [Linzess 145 Mcg Capsule] 145 mcg PO QAM 11/30/17 Melatonin [Melatonin 3 mg Tablet] 3 mg PO QHS 11/30/17 Nystatin [Mycostatin Topical Powder 15 gm] 1 applic TP BID 11/30/17 Omeprazole 40 mg PO DAILY 11/30/17 Risperidone [Risperdal 1 mg Tablet] 1 mg PO Q12 11/30/17 Docusate Sodium [Colace 100 mg Capsule] 100 mg PO BID capsule 12/01/17 Moxifloxacin HCl 400 mg PO DAILY #5 tablet 12/01/17 Polyethylene Glycol 3350 [Miralax Powder 17 gm/Packet] 17 gm PO BID powd.pack 12/01/17 Risperidone [Risperdal M-Tab 1 mg Odt Tablet] 1 mg PO Q12 tab.rapdis 12/01/17 History of Present Illness History of Present Illness: EARNEST HONEYCUTT is a 62 year old male with a history of schizophrenia who resides in a group facility who apparently had a choking episode at the facility earlier today. He apparently went somewhat lethargic and his blood pressure was checked and found to be very low with a systolic in the 70s. He was brought in to the ER and he was given IV fluids and his blood pressure responded. He was initially also noted to be hypoxemic but his oxygen saturations were back up in the upper 90s on room air with the oxygen off to the side of his head and he was talking quite a bit in his usual dysarthric manner. Because of his chronic condition, he does not have very good recall of his medical history and the only thing he kept saying to me consistently was "I 'bout [place]." Hospital Course Hospital Course: He was initially hypotensive and hypoxemic and these resolved before he ever left the emergency department. His breathing has remained comfortable. He has not been febrile. He will finish a course of moxifloxacin at home. He will remain on all of his usual medications otherwise. His exam and his lab work was reassuring and he was discharged today in good condition. Physical Exam Vital Signs: Temp Pulse Resp BP Pulse Ox 98.8 F 71 18 147/81 H 98 12/01/17 08:07 12/01/17 08:07 12/01/17 08:07 12/01/17 08:07 12/01/17 08:07 Pulse Oximeter Continuous Start: 11/30/17 13: 52 Freq: RTQ4 Status: Active Document 12/01/17 04:35 STI (Rec: 12/01/17 04:35 STI [email or web address]) Pulse Oximetry Assessment Oxygen Saturation (92-100) 94 Oxygen Delivery Method Room Air Fraction of Inspired Oxygen (FIO2) 21 Equipment Usage Equipment in Use Continuous SpO2 Machine # [id number] Intake & Output 11/30/17 12/01/17 12/02/17 06:59 06:59 06:59 Intake Total 222 Output Total 750 Balance -528 Weight 73.4 kg Results Laboratory Results: 12/01/17 06:20 18 06:20 12/01/17 12/01/17 06:20 06:20 WBC 9.7 RBC 4.27 L Hgb 12.6 L Hct 37.5 L MCV 88 MCH 29.6 MCHC 33.7 RDW 14.5 H Plt Count 175 Sodium 148.0 H Potassium 3.9 Chloride 111 H Carbon Dioxide 25 Anion Gap 12 BUN 12 Creatinine 0.77 Est GFR ( Amer) > 60 Est GFR (Non-Af Amer) > 60 Glucose 87 Calcium 9.2 Impressions: Chest X-Ray 11/30/17 10:48 IMPRESSION: Interstitial prominence of the lung padilla with slight patchy infiltrate LLL. Head CT 11/30/17 10:48 IMPRESSION: NORMAL BRAIN CT WITHOUT CONTRAST. EVIDENCE OF ACUTE STROKE: NO. Qualifiers - * PATIENT BEING DISCHARGED WITH ANY OF THE FOLLOWING DIAGNOSIS: No
[2017-12-01 16:27] VITALS: BP 121/75
[2017-12-01] MEDS ORDERED: RISPERIDONE 1 MG TAB.RAPDIS PO SCH (22:00)
== END 2017-12-01 18:15 | DRG 178 ==
LOC: ER 10:38 → EH 13:34 → 4N 15:06
PROVIDERS: ADMIT Internal Medicine; ATTEND Internal Medicine
PROC: 3E0F73Z Introduction of Anti-inflammatory into Respiratory Tract, Via Natural or Artificial Opening (ICD-10-PCS; principal; 2017-11-30)
DX: J69.0 Pneumonitis due to inhalation of food and vomit (principal); E27.40 Unspecified adrenocortical insufficiency; I95.9 Hypotension, unspecified; I10 Essential (primary) hypertension; K21.9 Gastro-esophageal reflux disease without esophagitis; F32.9 Major depressive disorder, single episode, unspecified; F25.9 Schizoaffective disorder, unspecified; K59.00 Constipation, unspecified; N40.0 Benign prostatic hyperplasia without lower urinary tract symptoms; I48.91 Unspecified atrial fibrillation; Z79.899 Other long term (current) drug therapy; Z87.891 Personal history of nicotine dependence; Z79.52 Long term (current) use of systemic steroids; Z88.8 Allergy status to other drugs, medicaments and biological substances; I25.2 Old myocardial infarction
CPT/HCPCS: 36415; 70450; 71045; 80048; 80053; 81001; 82272; 82803; 83605; 83735; 84439; 84443; 84481; 84484; 85025; 85027; 85610; 85730; 87040; 87086; 87088; 87186; 93005; 93010; 94762; 96361; 96365; 96375; 99285; J0692; J1650; J1720; J2543; J3490; J7030; J7120

== ENCOUNTER 2018-01-30 22:13 | Emergency (ER) | payer MEDICARE, MEDICAID ==
[2018-01-30 23:15] LABS: ABSOLUTE BASOPHILS # (AUTO) 0.1 10^3/uL (0.0-0.2); ABSOLUTE EOSINOPHILS # (AUTO) 0.2 10^3/uL (0.0-0.6); ABSOLUTE LYMPHOCYTES (AUTO) 2.4 10^3/uL (0.5-4.7); ABSOLUTE MONOCYTES (AUTO) 0.5 10^3/uL (0.1-1.4); ABSOLUTE NEUT (AUTO) 2.8 10^3/uL (1.7-8.2); BASOPHILS % (AUTO) 0.9 % (0-2); EOSINOPHILS % (AUTO) 3.7 % (0-6); HEMATOCRIT 35.5 % (37.9-51.0); HEMOGLOBIN 12.1 g/dL (13.5-17.0); LYMPHOCYTES % (AUTO) 39.5 % (13-45); MEAN CORPUSCULAR HEMOGLOBIN 29.8 pg (27.0-33.4); MEAN CORPUSCULAR VOLUME 88 fl (80-97); PLATELET COUNT 187 10^3/uL (150-450); RED BLOOD COUNT 4.04 10^6/uL (4.35-5.55); SEGMENTED NEUTROPHILS % (AUTO) 46.9 % (42-78); TOTAL CELLS COUNTED % (AUTO) 100 %
[2018-01-30 23:16] LABS: APPEARANCE,URINE CLEAR; BILIRUBIN,URINE NEGATIVE (NEGATIVE); COLOR,URINE STRAW; GLUCOSE, URINE NEGATIVE (NEGATIVE); KETONES,URINE NEGATIVE (NEGATIVE); LEUKOCYTE ESTERASE,URINE MODERATE (NEGATIVE); NITRITE,URINE NEGATIVE (NEGATIVE); PROTEIN,URINE NEGATIVE (NEGATIVE); URINE SPECIFIC GRAVITY 1.003; UROBILINOGEN,URINE NEGATIVE mg/dL (<2.0)
--- NOTE | 2018-01-30 23:19 | RADIOLOGY REPORT (SQ) ---
EXAM DESCRIPTION: XR CHEST 1 VIEW COMPLETED DATE/TME: 01/30/2018 22:29 CLINICAL HISTORY: hypoxia COMPARISON: 11/30/2017 FINDINGS: Single frontal view of the chest. Atherosclerotic calcification of the aortic arch. Respiratory motion artifact. Heart is not enlarged. Leads overlie the chest. Linear and patchy left basilar opacities with elevation the left hemidiaphragm. No pneumothorax or large effusion. Apical scarring is stable. No acute osseous abnormalities. Likely remote right rib fractures. Dextroconvex scoliosis of the thoracic spine is stable. Upper abdominal soft tissues are unremarkable. IMPRESSION: 1. Left basilar opacities may represent developing pneumonic process. Continued radiographic follow-up to resolution recommended. 2. Findings suggest obstructive lung disease.
[2018-01-30 23:28] LABS: ALANINE AMINOTRANSFERASE 25 U/L (21-72); ALBUMIN 3.8 g/dL (3.5-5.0); ALKALINE PHOSPHATASE 67 U/L (38-126); ANION GAP 11 (5-19); ASPARTATE AMINO TRANSFERASE 16 U/L (17-59); BILIRUBIN,DIRECT 0.2 mg/dL (0.0-0.4); BILIRUBIN,TOTAL 0.4 mg/dL (0.2-1.3); BLOOD UREA NITROGEN 12 mg/dL (7-20); CALCIUM 8.9 mg/dL (8.4-10.2); CARBON DIOXIDE 29 mmol/L (22-30); CHLORIDE 102 mmol/L (98-107); GLUCOSE 83 mg/dL (75-110); POTASSIUM 3.1 mmol/L (3.6-5.0); SODIUM 141.6 mmol/L (137-145); TOTAL PROTEIN 6.6 g/dL (6.3-8.2)
[2018-01-31] MEDS ORDERED: LEVOFLOXACIN 750 MG TABLET PO ONE (00:08)
--- NOTE | 2018-01-31 00:11 | ER Document Report ---
ED General - General Chief Complaint: Urinary Problem Stated Complaint: BLOOD IN URINE Time Seen by Provider: 01/30/18 22:23 Notes: Patient is a 63-year-old male with a history of dementia who was sent from senior care because he has been having some dysuria and blood in the urine. Apparently senior care sent a UA away a week ago but they still have not gotten back results and therefore they sent the patient to the ER for further evaluation. He denies any difficulty breathing. The patient himself has absolutely no complaints whatsoever. He denies any abdominal pain. He denies recent fevers. TRAVEL OUTSIDE OF THE [place] IN LAST 30 DAYS: No - Related Data Allergies/Adverse Reactions: sertraline [From Zoloft] Allergy (Verified 11/30/17 15:08) Past Medical History - Social History Smoking Status: Unknown if Ever Smoked Frequency of alcohol use: None Drug Abuse: None Family History: Reviewed & Not Pertinent, Other - unknown Patient has suicidal ideation: No Patient has homicidal ideation: No - Past Medical History Cardiac Medical History: Reports: Hx Hypertension - Low BP Pulmonary Medical History: Denies: Hx Tuberculosis Neurological Medical History: Reports: Hx Seizures Endocrine Medical History: Denies: Hx Graves' Disease, Hx Hyperthyroidism, Hx Hypothyroidism Renal/ Medical History: Reports: Hx Benign Prostatic Hyperplasia. Denies: Hx Peritoneal Dialysis GI Medical History: Reports: Hx Gastroesophageal Reflux Disease Psychiatric Medical History: Reports: Hx Depression, Hx Schizoaffective Disorder , Hx Schizophrenia Past Surgical History: Denies: Hx Pacemaker - Immunizations Hx Diphtheria, Pertussis, Tetanus Vaccination: Yes Hx Pneumococcal Vaccination: 06/13/11 Review of Systems - Review of Systems Notes: My Normal Review Basic REVIEW OF SYSTEMS: CONSTITUTIONAL : Denies fever, chills, or sweats. Denies recent illness. EENT: Denies eye, ear, throat, or mouth pain or symptoms. Denies nasal or sinus congestion. CARDIOVASCULAR: Denies chest pain. RESPIRATORY: Denies cough, cold, or chest congestion. Denies shortness of breath, difficulty breathing, or wheezing. GASTROINTESTINAL: No abdominal pain. GENITOURINARY: Dysuria. MUSCULOSKELETAL: Denies neck or back pain or joint pain or swelling. SKIN: Denies rash or skin lesions. NEUROLOGICAL: Denies altered mental status or loss of consciousness. Denies headache. Denies weakness or paralysis or loss of use of either side. Denies problems with gait or speech. Denies sensory or motor loss. ALL OTHER SYSTEMS REVIEWED AND NEGATIVE. Physical Exam - Vital signs Vitals: Temp Resp Pulse Ox 97.8 F 16 95 01/30/18 22:18 01/30/18 22:18 01/30/18 22:18 - Notes Notes: General Appearance: Well nourished, alert, cooperative, no acute distress, no obvious discomfort. Vitals: reviewed, See vital signs table. Head: no swelling or tenderness to the head Eyes: PERRL, EOMI, Conjuctiva clear Mouth: No decreasd moisture Lungs: No wheezing, No rales, No rhonci, No accessory muscle use, good air exchange bilaterally. Heart: Normal rate, Regular rythm, No murmur, no rub Abdomen: Normal BS, soft, No rigidity, No abdominal tenderness, No guarding, no rebound, no abdominal masses, no organomegaly Genital: Normal external genitalia without any redness or swelling. Extremities: strength 5/5 in all extremities, good pulses in all extremities, no swelling or tenderness in the extremities, no edema. Skin: warm, dry, appropriate color, no rash Neuro: speech clear, oriented x 3, normal affect, responds appropriately to questions. Cranial nerves II through XII are intact. Distal sensation intact. Patient was all extremities without difficulty. Course - Re-evaluation Re-evalutation: 01/31/18 06:49 The patient safe to be discharged home. Patient looks very well. Chest x-ray shows possible pneumonia. He does have UTI. I will place him on Levaquin to cover for both. His vital signs are completely normal. Patient to return to ER if he has hypoxemia, fevers, or appears unwell. Dictation of this chart was performed using voice recognition software; therefore, there may be some unintended grammatical errors. - Vital Signs Vital signs: Temp Pulse Resp BP Pulse Ox 98.7 F 16 113/74 95 01/31/18 00:32 01/31/18 00:32 01/31/18 00:32 01/31/18 00:32 - Laboratory Result Diagrams: 01/30/18 22:56 01/30/18 22:56 Laboratory results interpreted by me: 01/30/18 01/30/18 01/30/18 22:56 22:56 22:56 RBC 4.04 L Hgb 12.1 L Hct 35.5 L Potassium 3.1 L AST 16 L Ur Leukocyte Esterase MODERATE H Discharge - Discharge Clinical Impression: UTI (urinary tract infection) Qualifiers: Urinary tract infection type: site unspecified Hematuria presence: without hematuria Qualified Code(s): N39.0 - Urinary tract infection, site not specified Pneumonia Qualifiers: Pneumonia type: due to unspecified organism Laterality: unspecified laterality Lung location: unspecified part of lung Qualified Code(s): J18.9 - Pneumonia, unspecified organism Condition: Good Disposition: HOME, SELF-CARE Additional Instructions: Please take the antibiotic as prescribed. Please return to the ER if you have fevers, vomiting, difficulty breathing, or feel unwell. You have been prescribed an antibiotic that is in the class of antibiotics called fluoroquinolones. On rare occasions these can cause weakness of the tendons. You should therefore avoid any type of heavy lifting or sporting activities while you are on this antibiotic and up to 1 week after stopping it. Prescriptions: Levofloxacin [Levaquin 750 mg Tablet] 750 mg PO DAILY #7 tablet Referrals: SAAD MEDRANO MD [Primary Care Provider] - 02/02/18
[2018-01-31 00:54] VITALS: BP 113/74
== END 2018-01-31 00:54 | disposition home or self-care (01) ==
LOC: ER 22:13
DX: N39.0 Urinary tract infection, site not specified (principal); J18.9 Pneumonia, unspecified organism; Z88.8 Allergy status to other drugs, medicaments and biological substances
CPT/HCPCS: 99284; 36415; 87086; 85025; 87088; 80053; 81001; 87186; 71045; A9270

== ENCOUNTER 2018-03-29 09:24 | Emergency (ER) | payer MEDICARE, MEDICAID ==
--- NOTE | 2018-03-29 09:45 | ER Document Report ---
ED General - General Chief Complaint: Toe Injury Stated Complaint: TOE PAIN Time Seen by Provider: 03/29/18 09:44 Notes: Patient is a 63-year-old male with schizophrenia and developmental delay that presents to the emergency department for chief complaint of right toe pain. Patient is a poor historian, but according to records the patient had an infection in his right great toe, is seen by podiatry, he did have an injury to it, that led to this. He is currently on doxycycline and clindamycin. He states the toe is painful to touch, and to move it, they had to take his shoes off because they were pushing on it. He currently rates the pain as a 4 out of 10, worse with any movements or pressure on the area. Denies noting any fevers , chills, night sweats, chest pain, nausea or vomiting. The patient was seen podiatry for this, and they did start him on doxycycline. The care facility he is at was concerned about the toe so they had him come here to be evaluated today. Past Medical History: Schizophrenia, depression, diabetes, GERD, hyperlipidemia Past Surgical History: Reviewed and not pertinent to presentation Social History: Lives in a [facility], denies tobacco or alcohol use Family History: Reviewed and noncontributory for presenting illness Allergies: Reviewed, see documented allergy list. REVIEW OF SYSTEMS: Unless otherwise stated in this report the patient's positive and negative responses for review of systems for constitutional, eyes, ENT, cardiovascular, respiratory, gastrointestinal, neurological, genitourinary, musculoskeletal, and integumentary systems and related systems to the presenting problem are either as stated in the HPI or were not pertinent or were negative for the symptoms and/or complaints related to the presenting medical problem. PHYSICAL EXAMINATION: Vital signs reviewed, nursing noted reviewed. GENERAL: Well-appearing, well-nourished and in no acute distress. HEAD: Atraumatic, normocephalic. EYES: Eyes appear normal, extraocular movements intact, sclera anicteric, conjunctiva are normal. ENT: nares patent, oropharynx clear without exudates. Moist mucous membranes. NECK: Normal range of motion, supple without lymphadenopathy LUNGS: Breath sounds clear to auscultation bilaterally and equal. No wheezes rales or rhonchi. HEART: Regular rate and rhythm without murmurs ABDOMEN: Soft, nontender, normoactive bowel sounds. No rebound, guarding, or rigidity. No masses appreciated. EXTREMITIES: The right great toe is erythematous, and a small area of ecchymosis , presumed to be from injury, associated paronychia with some purulent drainage , there is mild tenderness with palpation to the area, no fluctuance, is also bruising noted to the second and third digits, consistent with an injury in the past. The rest of the extremity exam is grossly unremarkable. Neurovascular intact distally in all extremities and digits, cap refill less than 3 seconds. NEUROLOGICAL: No focal neurological deficits. Moves all extremities spontaneously Motor and sensory grossly intact on exam. PSYCH: Flat affect, but appropriate and cooperative SKIN: Warm, Dry, normal turgor, no rashes or lesions noted on exposed skin TRAVEL OUTSIDE OF THE [place] IN LAST 30 DAYS: No - Related Data Allergies/Adverse Reactions: sertraline [From Zoloft] Allergy (Verified 11/30/17 15:08) Past Medical History - Social History Smoking Status: Never Smoker Family History: Reviewed & Not Pertinent, Other - unknown - Past Medical History Cardiac Medical History: Reports: Hx Hypertension - Low BP Pulmonary Medical History: Denies: Hx Tuberculosis Neurological Medical History: Reports: Hx Seizures Endocrine Medical History: Denies: Hx Graves' Disease, Hx Hyperthyroidism, Hx Hypothyroidism Renal/ Medical History: Reports: Hx Benign Prostatic Hyperplasia. Denies: Hx Peritoneal Dialysis GI Medical History: Reports: Hx Gastroesophageal Reflux Disease Psychiatric Medical History: Reports: Hx Depression, Hx Schizoaffective Disorder , Hx Schizophrenia Past Surgical History: Denies: Hx Pacemaker - Immunizations Hx Diphtheria, Pertussis, Tetanus Vaccination: Yes Hx Pneumococcal Vaccination: 06/13/11 Physical Exam - Vital signs Vitals: Temp Pulse Resp BP Pulse Ox 97.5 F 78 14 107/70 99 03/29/18 09:30 03/29/18 09:30 03/29/18 09:30 03/29/18 09:30 03/29/18 09:30 Course - Re-evaluation Re-evalutation: Patient seen and examined vital signs reviewed. Laboratory data and imaging were ordered as appropriate for the patient's presenting symptoms and complaint, with consideration of any critical or life threatening conditions that may be associated with their obtained history and exam as noted above. Patient was treated with IV fluid Results were reviewed when available and demonstrated negative x-ray of the toe , no evidence of osteomyelitis or fracture, blood work was unremarkable, normal CRP, ESR, and WBC, highly unlikely this patient would have osteomyelitis at this point, likely paronychia, advised continuing current antibiotic therapy and following up with podiatry. The patient was re-evaluated and was stable, not complaining of any pain Results were discussed with the patient at this point, after careful consideration I feel that that patient can be discharged from the emergency department, the patient was educated treatments and reasons to return to the emergency department based on their presumed diagnosis as noted above, they were advised to followup with a primary care physician in 2-3 days. Patient was agreeable to plan of care. *Note is created using voice recognition software and may contain spelling, syntax or grammatical errors. Laboratory 03/29/18 03/29/18 11:11 11:11 WBC 5.9 RBC 4.98 Hgb 14.6 Hct 44.0 MCV 88 MCH 29.4 MCHC 33.2 RDW 14.2 H Plt Count 184 Seg Neutrophils % 68.4 Lymphocytes % 20.8 Monocytes % 8.6 Eosinophils % 1.7 Basophils % 0.5 Absolute Neutrophils 4.0 Absolute Lymphocytes 1.2 Absolute Monocytes 0.5 Absolute Eosinophils 0.1 Absolute Basophils 0.0 ESR 10 Sodium 143.6 Potassium 4.1 Chloride 104 Carbon Dioxide 31 H Anion Gap 9 BUN 14 Creatinine 0.80 Est GFR ( Amer) > 60 Est GFR (Non-Af Amer) > 60 Glucose 93 Calcium 9.9 Total Bilirubin 0.6 Direct Bilirubin 0.3 Neonat Total Bilirubin Not Reportable Neonat Direct Bilirubin Not Reportable Neonat Indirect Bili Not Reportable AST 15 L ALT 13 L Alkaline Phosphatase 77 C-Reactive Protein 6.6 Total Protein 7.7 Albumin 4.7 - Vital Signs Vital signs: Temp Pulse Resp BP Pulse Ox 97.9 F 84 14 105/65 94 03/29/18 13:34 03/29/18 13:27 03/29/18 13:34 03/29/18 13:27 03/29/18 13:34 - Laboratory Result Diagrams: 03/29/18 11:11 03/29/18 11:11 Laboratory results interpreted by me: 03/29/18 03/29/18 11:11 11:11 RDW 14.2 H Carbon Dioxide 31 H AST 15 L ALT 13 L - EKG Interpretation by Me Additional EKG results interpreted by me: EKG demonstrates sinus rhythm with a ventricular rate of 67 bpm, incomplete right bundle branch block present, left axis deviation, normal intervals, no evidence of acute ischemia in this EKG, this is compared with prior EKG from , at that time the patient was in atrial fibrillation with rapid ventricular response. Discharge - Discharge Clinical Impression: Paronychia Toe contusion Qualifiers: Encounter type: initial encounter Toe: great toe Damage to nail status: without damage Laterality: right Qualified Code(s): S90.111A - Contusion of right great toe without damage to nail, initial encounter Condition: Stable Disposition: HOME, SELF-CARE Instructions: [facility] ([facility]) Additional Instructions: Please follow-up with the metal off bearer the he saw, call for appointment for this week, to be reevaluated, continue current medications and antibiotics, you can place the toe in warm soapy water for 20 minutes 3 times a day to help with the infection. Referrals: SAAD MEDRANO MD [Primary Care Provider] - Follow up in 3-5 days
[2018-03-29] MEDS ORDERED: NORMAL SALINE 1000 ML 1,000 ML IV ONE (09:57)
--- NOTE | 2018-03-29 10:59 | RADIOLOGY REPORT (SQ) ---
EXAM DESCRIPTION: FOOT RIGHT COMPLETE COMPLETED DATE/TIME: 03/29/2018 10:48 am REASON FOR STUDY: great toe injury, erythema COMPARISON: None. NUMBER OF VIEWS: Three views. TECHNIQUE: AP, lateral and oblique radiographic images acquired of the right foot. LIMITATIONS: None. FINDINGS: MINERALIZATION: Normal. BONES: No acute fracture or dislocation. No worrisome bone lesions. JOINTS: No effusions. SOFT TISSUES: Swelling of the distal 1st phalanx. No foreign body. OTHER: No other significant finding. IMPRESSION: Soft tissue injury. No evidence of fracture or osteomyelitis. TECHNICAL DOCUMENTATION: JOB ID: [id number] [employer]- All Rights Reserved Reading location - IP/workstation name: [email or web address]
--- NOTE | 2018-03-29 11:02 | RADIOLOGY REPORT (SQ) ---
EXAM DESCRIPTION: CHEST 2 VIEWS COMPLETED DATE/TIME: 03/29/2018 10:48 am REASON FOR STUDY: preop COMPARISON: 05/13/2013 NUMBER OF VIEWS: Two view. TECHNIQUE: Frontal and lateral radiographic views of the chest acquired. LIMITATIONS: None. FINDINGS: LUNGS AND PLEURA: No opacities, masses or pneumothorax. No pleural effusion. Attenuated bl ood vessels and flattened meghan-diaphragms. MEDIASTINUM AND HILAR STRUCTURES: No masses. No contour abnormalities. HEART AND VASCULAR STRUCTURES: Heart normal in size and contour. No evidence for failure. BONES: No acute findings. HARDWARE: None in the chest. OTHER: Colonic gas under the right diaphragm. IMPRESSION: COPD. NO ACUTE RADIOGRAPHIC FINDING IN THE CHEST. TECHNICAL DOCUMENTATION: JOB ID: [id number] [employer]- All Rights Reserved Reading location - IP/workstation name: [email or web address]
[2018-03-29 11:42] LABS: ABSOLUTE EOSINOPHILS # (AUTO) 0.1 10^3/uL (0.0-0.6); ABSOLUTE LYMPHOCYTES (AUTO) 1.2 10^3/uL (0.5-4.7); ABSOLUTE MONOCYTES (AUTO) 0.5 10^3/uL (0.1-1.4); BASOPHILS % (AUTO) 0.5 % (0-2); EOSINOPHILS % (AUTO) 1.7 % (0-6); HEMOGLOBIN 14.6 g/dL (13.5-17.0); LYMPHOCYTES % (AUTO) 20.8 % (13-45); MEAN CORPUSCULAR HEMOGLOBIN 29.4 pg (27.0-33.4); MEAN CORPUSCULAR HGB CONC 33.2 g/dL (32.0-36.0); MEAN CORPUSCULAR VOLUME 88 fl (80-97); MONOCYTES % (AUTO) 8.6 % (3-13); PLATELET COUNT 184 10^3/uL (150-450); RED BLOOD COUNT 4.98 10^6/uL (4.35-5.55); RED CELL DISTRIBUTION WIDTH 14.2 % (11.5-14.0); SEGMENTED NEUTROPHILS % (AUTO) 68.4 % (42-78); TOTAL CELLS COUNTED % (AUTO) 100 %; WHITE BLOOD COUNT 5.9 10^3/uL (4.0-10.5)
[2018-03-29 11:59] LABS: ALANINE AMINOTRANSFERASE 13 U/L (21-72); ALBUMIN 4.7 g/dL (3.5-5.0); ALKALINE PHOSPHATASE 77 U/L (38-126); ANION GAP 9 (5-19); ASPARTATE AMINO TRANSFERASE 15 U/L (17-59); BILIRUBIN,DIRECT 0.3 mg/dL (0.0-0.4); BILIRUBIN,TOTAL 0.6 mg/dL (0.2-1.3); BLOOD UREA NITROGEN 14 mg/dL (7-20); C-REACTIVE PROTEIN 6.6 mg/L (<10.0); CALCIUM 9.9 mg/dL (8.4-10.2); CARBON DIOXIDE 31 mmol/L (22-30); CHLORIDE 104 mmol/L (98-107); GLUCOSE 93 mg/dL (75-110); POTASSIUM 4.1 mmol/L (3.6-5.0); SODIUM 143.6 mmol/L (137-145); TOTAL PROTEIN 7.7 g/dL (6.3-8.2)
[2018-03-29 12:19] LABS: ERYTHROCYTE SEDIMENTATION RATE 10 mm/hr (0-20)
--- NOTE | 2018-03-29 13:03 | EKG REPORT ---
SEVERITY:- ABNORMAL ECG - ATRIAL FIBRILLATION, V-RATE 63-70 INCOMPLETE RBBB AND LAFB CONSIDER RIGHT VENTRICULAR HYPERTROPHY BORDERLINE R WAVE PROGRESSION, ANTERIOR LEADS : Confirmed by: Danny Vitale MD 29-Mar-2018 13:02:40
[2018-03-29 13:28] VITALS: BP 105/65
== END 2018-03-29 13:20 | disposition home or self-care (01) ==
LOC: ER 09:24
DX: S90.111A Contusion of right great toe without damage to nail, initial encounter (principal); L03.031 Cellulitis of right toe; M79.674 Pain in right toe(s); F20.9 Schizophrenia, unspecified; R62.50 Unspecified lack of expected normal physiological development in childhood; E11.9 Type 2 diabetes mellitus without complications; K21.9 Gastro-esophageal reflux disease without esophagitis; X58.XXXA Exposure to other specified factors, initial encounter
CPT/HCPCS: 93005; 99284; 96360; 36415; 87040; 85025; 85652; 86140; 80053; 71046; 73630; 93010; J7030

== ENCOUNTER 2019-10-21 09:37 | Emergency (ER) | payer MEDICARE, MEDICAID ==
--- NOTE | 2019-10-21 09:56 | ER Document Report ---
ED General - General Chief Complaint: Choked/Choking Stated Complaint: CHOKING Time Seen by Provider: 10/21/19 09:42 Primary Care Provider: ASAD MEDRANO MD [ACTIVE STAFF] - Follow up as needed Mode of Arrival: Medic Information source: Patient Notes: Patient is a 64-year-old male presenting to the emergency department from an assisted living facility via EMS. EMS reports that patient was eating breakfast this morning when he started choking on the food and then had a syncopal episode and fell. EMS reports that the staff at the [facility] said he turned blue in the face of the initiated chest compressions. Patient apparently had spontaneous return of circulation. It is unclear how long the [facility] staff did CPR as EMS states they were not doing CPR when they arrived. Patient has dementia and is unable to appropriately answer questions however he is alert and vital signs are normal on arrival. TRAVEL OUTSIDE OF THE [place] IN LAST 30 DAYS: No - Related Data Allergies/Adverse Reactions: sertraline [From Zoloft] Allergy (Verified 10/21/19 10:45) Past Medical History - General Information source: Patient - Social History Smoking Status: Former Smoker Lives with: Other - long-term Family History: Reviewed & Not Pertinent, Other - unknown - Past Medical History Cardiac Medical History: Reports: Hx Atrial Fibrillation, Hx Hypertension - Low BP Pulmonary Medical History: Reports: Other - Emphysema Denies: Hx Tuberculosis Neurological Medical History: Reports: Hx Seizures Endocrine Medical History: Denies: Hx Graves' Disease, Hx Hyperthyroidism, Hx Hypothyroidism Renal/ Medical History: Reports: Hx Benign Prostatic Hyperplasia. Denies: Hx Peritoneal Dialysis GI Medical History: Reports: Hx Gastroesophageal Reflux Disease Musculoskeletal Medical History: Denies Hx Systemic Lupus Erythematosus Psychiatric Medical History: Reports: Hx Depression, Hx Schizoaffective Disorder, Hx Schizophrenia Past Surgical History: Denies: Hx Pacemaker - Immunizations Hx Diphtheria, Pertussis, Tetanus Vaccination: Yes Hx Pneumococcal Vaccination: 06/13/11 Review of Systems - Review of Systems Musculoskeletal: See HPI -: Yes All other systems reviewed and negative Physical Exam - Vital signs Vitals: Temp 97.7 F 10/21/19 09:37 - Notes Notes: PHYSICAL EXAMINATION: GENERAL: Well-appearing, well-nourished and in no acute distress. HEAD: Atraumatic, normocephalic. Ecchymosis noted to right eye. EYES: Pupils equal round and reactive to light, extraocular movements intact, sclera anicteric, conjunctiva are normal. ENT: Nares patent, oropharynx clear without exudates. Moist mucous membranes. NECK: Normal range of motion, supple without lymphadenopathy LUNGS: Breath sounds clear to auscultation bilaterally and equal. No wheezes rales or rhonchi. HEART: Regular rate and rhythm without murmurs ABDOMEN: Soft, nontender, nondistended abdomen. No guarding, no rebound. No masses appreciated. Musculoskeletal: Normal range of motion, no pitting or edema. No cyanosis. NEUROLOGICAL: Cranial nerves grossly intact. Normal sensory, motor exams PSYCH: Normal mood, normal affect. SKIN: Warm, Dry, normal turgor, no rashes or lesions noted. Course - Re-evaluation Re-evalutation: Patient appears well, nontoxic. He does have a small amount of ecchymosis to his right eye. Physical exam otherwise unremarkable. He is in a c-collar at the time of arrival. He will be sent for scans. He will also be sent for chest x-ray as apparently staff at his assisted living/senior care did CPR on him for an unspecified amount of time. Patient is alert, he does say that he is having pain but does not specify where. Laboratory 10/21/19 10/21/19 10/21/19 09:48 09:48 09:48 WBC 5.5 RBC 4.41 Hgb 13.4 L Hct 39.6 MCV 90 MCH 30.4 MCHC 34.0 RDW 15.5 H Plt Count 107 L Lymph % (Auto) 25.8 Towns % (Auto) 10.7 Eos % (Auto) 2.6 Baso % (Auto) 0.8 Absolute Neuts (auto) 3.3 Absolute Lymphs (auto) 1.4 Absolute Monos (auto) 0.6 Absolute Eos (auto) 0.1 Absolute Basos (auto) 0.0 Seg Neutrophils % 60.1 Sodium 139.2 Potassium 3.3 L Chloride 104 Carbon Dioxide 29 Anion Gap 6 BUN 18 Creatinine 0.93 Est GFR ( Amer) > 60 Est GFR (MDRD) Non-Af > 60 Glucose 120 H Calcium 9.0 Total Bilirubin 0.5 Direct Bilirubin 0.0 Neonat Total Bilirubin Not Reportable Neonat Direct Bilirubin Not Reportable Neonat Indirect Bili Not Reportable AST 23 ALT 14 Alkaline Phosphatase 49 Troponin I < 0.012 Total Protein 6.5 Albumin 3[address] 10/21/19 09:50 IMPRESSION: NO ACUTE OR SIGNIFICANT FINDINGS IN THE CERVICAL SPINE. Head CT 10/21/19 09:50 IMPRESSION: NORMAL BRAIN CT WITHOUT CONTRAST. EVIDENCE OF ACUTE STROKE: NO. Chest X-Ray 10/21/19 09:52 IMPRESSION: HEART ENLARGED WITHOUT FAILURE. NO OTHER SIGNIFICANT RADIOGRAPHIC FINDING IN THE CHEST. No identified acute rib fractures. Chest/Abdomen CTA 10/21/19 11:49 IMPRESSION: Marked emphysema. No acute pulmonary emboli. Gallstone. CT head and CT C-spine negative. Cervical collar removed. No vertebral tende rness, step-off or deformity noted on exam. Patient has become hypoxic several times with oxygen saturations dipping down to the 85 to 87% range. He however did not appear to be hypoxic was awake, alert and talking. Good skin color. He is a former smoker but has no formal diagnosis of COPD to explain this. He will be sent for a CTA to rule out pulmonary embolism. His EKG showed atrial fibrillation, unchanged from previous EKG. According to paramedics the staff at his assisted living facility told them he has never had atrial fibrillation before. Upon review of the [facility] records he has had atrial fibrillation here several times on EKG. CTA shows marked emphysema but no evidence of pulmonary embolism. No evidence of pneumonia. Will be discharged back to his senior care/assisted living facility. Recommendation for them to speak to primary care about possibly starting him on oxygen. - Vital Signs Vital signs: Temp Pulse Resp BP Pulse Ox 97.7 F 20 107/83 89 L 10/21/19 13:01 10/21/19 13:01 10/21/19 13:00 10/21/19 13:01 - Laboratory Result Diagrams: 10/21/19 09:48 10/21/19 09:48 Laboratory results interpreted by me: 10/21/19 10/21/19 09:48 09:48 Hgb 13.4 L RDW 15.5 H Plt Count 107 L Potassium 3.3 L Glucose 120 H - Diagnostic Test Radiology reviewed: Image reviewed, Reports reviewed - EKG Interpretation by Me Rate: Normal Rhythm: A.Fib When compared to previous EKG there are: No significant change Additional EKG results interpreted by me: 10/21/19 13:[address] segment elevations or depressions to suggest ischemia. Discharge - Discharge Clinical Impression: Choking Qualifiers: Encounter type: initial encounter Qualified Code(s): T17.308A - Unspecified foreign body in larynx causing other injury, initial encounter Fall Qualifiers: Encounter type: initial encounter Qualified Code(s): W19.XXXA - Unspecified fall, initial encounter Episode of syncope Qualifiers: Syncope type: unspecified Qualified Code(s): R55 - Syncope and collapse Facial contusion Qualifiers: Encounter type: initial encounter Qualified Code(s): S00.83XA - Contusion of other part of head, initial encounter Emphysema lung Qualifiers: Emphysema type: unspecified Qualified Code(s): J43.9 - Emphysema, unspecified Atrial fibrillation Qualifiers: Atrial fibrillation type: unspecified Qualified Code(s): I48.91 - Unspecified atrial fibrillation Condition: Stable Disposition: HOME, SELF-CARE Additional Instructions: You were seen in the emergency department after an episode of choking which led to you passing out. The CAT scans of your head and neck were normal. There is no evidence of any fracture. Your chest x-ray was also normal. There was no evidence of rib fractures from the chest compressions that the staff at your facility initiated. Your oxygen saturations here in the emergency department were a little on the low side. The CAT scan of your chest showed that you have emphysema. I would advise you follow-up with your primary care provider to see if they want to start you on some oxygen. All of your blood work was reassuring. The EKG that was performed shows that you have atrial fibrillation. You have had a history of this several times in the past. Please also make sure that this is mention to your primary care provider for their review. Return to the emergency department with any new or life-threatening complaints. Referrals: SAAD MEDRANO MD [ACTIVE STAFF] - Follow up as needed
[2019-10-21 10:29] LABS: ABSOLUTE EOSINOPHILS # (AUTO) 0.1 10^3/uL (0.0-0.6); ABSOLUTE LYMPHOCYTES (AUTO) 1.4 10^3/uL (0.5-4.7); ABSOLUTE MONOCYTES (AUTO) 0.6 10^3/uL (0.1-1.4); ABSOLUTE NEUT (AUTO) 3.3 10^3/uL (1.7-8.2); BASOPHILS % (AUTO) 0.8 % (0-2); EOSINOPHILS % (AUTO) 2.6 % (0-6); HEMATOCRIT 39.6 % (37.9-51.0); HEMOGLOBIN 13.4 g/dL (13.5-17.0); LYMPHOCYTES % (AUTO) 25.8 % (13-45); MEAN CORPUSCULAR HEMOGLOBIN 30.4 pg (27.0-33.4); MEAN CORPUSCULAR VOLUME 90 fl (80-97); MONOCYTES % (AUTO) 10.7 % (3-13); PLATELET COUNT 107 10^3/uL (150-450); RED BLOOD COUNT 4.41 10^6/uL (4.35-5.55); RED CELL DISTRIBUTION WIDTH 15.5 % (11.5-14.0); SEGMENTED NEUTROPHILS % (AUTO) 60.1 % (42-78); TOTAL CELLS COUNTED % (AUTO) 100 %; WHITE BLOOD COUNT 5.5 10^3/uL (4.0-10.5)
[2019-10-21 10:32] LABS: ALBUMIN 3.7 g/dL (3.5-5.0); ALKALINE PHOSPHATASE 49 U/L (38-126); ANION GAP 6 (5-19); ASPARTATE AMINO TRANSFERASE 23 U/L (17-59); BILIRUBIN,TOTAL 0.5 mg/dL (0.2-1.3); BLOOD UREA NITROGEN 18 mg/dL (7-20); CARBON DIOXIDE 29 mmol/L (22-30); CHLORIDE 104 mmol/L (98-107); GLUCOSE 120 mg/dL (75-110); POTASSIUM 3.3 mmol/L (3.6-5.0); TOTAL PROTEIN 6.5 g/dL (6.3-8.2)
--- NOTE | 2019-10-21 10:32 | RADIOLOGY REPORT (SQ) ---
EXAM DESCRIPTION: CHEST SINGLE VIEW IMAGES COMPLETED DATE/TIME: 10/21/2019 10:13 am REASON FOR STUDY: post chest compressions/possible aspiration COMPARISON: 03/29/2018 NUMBER OF VIEWS: One view. TECHNIQUE: Single frontal radiographic view of the chest acquired. LIMITATIONS: None. FINDINGS: LUNGS AND PLEURA: Chronic changes. No effusions. MEDIASTINUM AND HILAR STRUCTURES: No masses. Contour normal. HEART AND VASCULAR STRUCTURES: Heart enlarged without failure. Normal vasculature. BONES: No acute findings. HARDWARE: None in the chest. OTHER: No other significant finding. IMPRESSION: HEART ENLARGED WITHOUT FAILURE. NO OTHER SIGNIFICANT RADIOGRAPHIC FINDING IN THE CHEST. No identified acute rib fractures. TECHNICAL DOCUMENTATION: JOB ID: [id number] 2010 [employer]- All Rights Reserved Reading location - IP/workstation name: [email or web address]
--- NOTE | 2019-10-21 10:33 | RADIOLOGY REPORT (SQ) ---
EXAM DESCRIPTION: CT HEAD WITHOUT IMAGES COMPLETED DATE/TIME: 10/21/2019 10:13 am REASON FOR STUDY: fall COMPARISON: 11/30/2017 TECHNIQUE: Axial images acquired through the brain without intravenous contrast. Images reviewed wi th bone, brain and subdural windows. Additional sagittal and coronal reconstructions were generated. Images stored on PACS. All CT scanners at this facility use dose modulation, iterative reconstruction, and/or weight based d osing when appropriate to reduce radiation dose to as low as reasonably achievable (ALARA). [facility]: Dose Right [facility]: CareDose [facility]: Dose Right [facility]: Teradose 4D [facility]: [employer] RADIATION DOSE: CT Rad equipment meets quality standard of care and radiation dose reduction techniq ues were employed. CTDIvol: 53.2 mGy. DLP: 991 mGy-cm. mGy. LIMITATIONS: None. FINDINGS: VENTRICLES: Normal size and contour. CEREBRUM: No masses. No hemorrhage. No midline shift. No evidence for acute infarction. Normal gra y/white matter differentiation. No areas of low density in the white matter. CEREBELLUM: No masses. No hemorrhage. No alteration of density. No evidence for acute infarction. EXTRAAXIAL SPACES: No fluid collections. No masses. ORBITS AND GLOBE: No intra- or extraconal masses. Normal contour of globe without masses. CALVARIUM: No fracture. PARANASAL SINUSES: No fluid or mucosal thickening. SOFT TISSUES: No mass or hematoma. OTHER: No other significant finding. IMPRESSION: NORMAL BRAIN CT WITHOUT CONTRAST. EVIDENCE OF ACUTE STROKE: NO. COMMENT: Quality ID # 436: Final reports with documentation of one or more dose reduction techniques (e.g., Automated exposure control, adjustment of the mA and/or kV according to patient size, use of iterative reconstruction technique) TECHNICAL DOCUMENTATION: JOB ID: [id number] 2010 [employer]- All Rights Reserved Reading location - IP/workstation name: [email or web address]
--- NOTE | 2019-10-21 10:35 | RADIOLOGY REPORT (SQ) ---
EXAM DESCRIPTION: CT CERVICAL SPINE WITHOUT IMAGES COMPLETED DATE/TIME: 10/21/2019 10:13 am REASON FOR STUDY: fall COMPARISON: None. TECHNIQUE: Axial images acquired through the cervical spine without intravenous contrast. Images re viewed with lung, soft tissue and bone windows. Reconstructed coronal and sagittal MPR images review ed. Images stored on PACS. All CT scanners at this facility use dose modulation, iterative reconstruction, and/or weight based d osing when appropriate to reduce radiation dose to as low as reasonably achievable (ALARA). [facility]: Dose Right [facility]: CareDose [facility]: Dose Right [facility]: Teradose 4D [facility]: [employer] RADIATION DOSE: CT Rad equipment meets quality standard of care and radiation dose reduction techniq ues were employed. CTDIvol: 15.7 mGy. DLP: 340 mGy-cm. mGy. LIMITATIONS: None. FINDINGS: ALIGNMENT: Anatomic. MINERALIZATION: Normal. VERTEBRAL BODIES: No fractures or dislocation. DISCS: Mild degenerative disc disease. FACETS, LATERAL MASSES, POSTERIOR ELEMENTS: No fractures. No dislocation. No acute findings. HARDWARE: None in the spine. VISUALIZED RIBS: No fractures. LUNG APICES AND SOFT TISSUES: No significant or acute findings. OTHER: No other significant finding. IMPRESSION: NO ACUTE OR SIGNIFICANT FINDINGS IN THE CERVICAL SPINE. TECHNICAL DOCUMENTATION: JOB ID: [id number] Quality ID # [id number]: Final reports with documentation of one or more dose reduction techniques (e.g., Au tomated exposure control, adjustment of the mA and/or kV according to patient size, use of iterative reconstruction technique) 2010 [employer]- All Rights Reserved Reading location - IP/workstation name: [email or web address]
[2019-10-21 13:24] VITALS: BP 107/83
--- NOTE | 2019-10-21 13:32 | RADIOLOGY REPORT (SQ) ---
EXAM DESCRIPTION: CTA CHEST IMAGES COMPLETED DATE/TIME: 10/21/2019 12:46 pm REASON FOR STUDY: low oxygen saturations COMPARISON: 05/27/2012 TECHNIQUE: CT scan of the chest performed using helical scanning technique with dynamic intravenous contrast injection. Images reviewed with lung, soft tissue and bone windows. Reconstructed coronal and sagittal MPR images reviewed. Additional 3 dimensional post-processing performed to develop Maximal Intensity Projection images (MO P). All images stored on PACS. All CT scanners at this facility use dose modulation, iterative reconstruction, and/or weight based d osing when appropriate to reduce radiation dose to as low as reasonably achievable (ALARA). [facility]: Dose Right [facility]: CareDose [facility]: Dose Right [facility]: Teradose 4D [facility]: [employer] CONTRAST TYPE AND DOSE: contrast/concentration: Isovue 350.00 mg/ml; Total Contrast Delivered: 70.0 ml; Total Saline Delivered: 80.0 ml Contrast bolus adequate for pulmonary arteries and aorta. RENAL FUNCTION: GFR > 60. RADIATION DOSE: CT Rad equipment meets quality standard of care and radiation dose reduction techniq ues were employed. CTDIvol: 14.9 - 18.1 mGy. DLP: 631 mGy-cm. . LIMITATIONS: None. FINDINGS: LUNGS AND PLEURA: Extensive emphysematous changes most prominent in the apices. No acute opacities. No effusions. AORTA AND GREAT VESSELS: No aneurysm. Contrast bolus not optimized for the aorta. HEART: No pericardial effusion. No significant coronary artery calcifications. PULMONARY ARTERIES: No emboli visualized in the main pulmonary arteries or the segmental branches. HILAR AND MEDIASTINAL STRUCTURES: No identified masses or abnormal nodes. HARDWARE: None in the chest. UPPER ABDOMEN: Gallstone. THYROID AND OTHER SOFT TISSUES: No masses. No adenopathy. BONES: No acute or significant finding. 3D MIPS: Confirm above findings. OTHER: No other significant finding. IMPRESSION: Marked emphysema. No acute pulmonary emboli. Gallstone. COMMENT: Quality ID # [id number]: Final reports with documentation of one or more dose reduction techniques (e.g., Automated exposure control, adjustment of the mA and/or kV according to patient size, use of iterative reconstruction technique) TECHNICAL DOCUMENTATION: JOB ID: [id number] 2010 [employer]- All Rights Reserved Reading location - IP/workstation name: [email or web address]
--- NOTE | 2019-10-22 06:18 | EKG REPORT ---
SEVERITY:- ABNORMAL ECG - SINUS RHYTHM IVCD, CONSIDER ATYPICAL RBBB AND LAFB POOR R WAVE PROGRESSION ANT PRECORDIAL LEADS : Confirmed by: Danny Vitale MD 22-Oct-2019 06:17:38
== END 2019-10-21 14:00 | disposition home or self-care (01) ==
LOC: ER 09:37
DX: T17.308A Unspecified foreign body in larynx causing other injury, initial encounter (principal); S00.83XA Contusion of other part of head, initial encounter; R55 Syncope and collapse; W19.XXXA Unspecified fall, initial encounter; J43.9 Emphysema, unspecified; I48.91 Unspecified atrial fibrillation; F03.90 Unspecified dementia, unspecified severity, without behavioral disturbance, psychotic disturbance, mood disturbance, and anxiety
CPT/HCPCS: 36415; 70450; 71045; 71275; 72125; 80053; 84484; 85025; 93005; 93010; 99285

== ENCOUNTER 2020-01-18 18:37 | Emergency (ER) | payer MEDICARE, MEDICAID ==
--- NOTE | 2020-01-19 00:19 | RADIOLOGY REPORT (SQ) ---
CLINICAL HISTORY: choked COMPARISON: None. TECHNIQUE: XR NECK SOFT TISSUE 01/18/2020 11:41 PM CDT FINDINGS: There is mild narrowing of the C5-6 disc. The airway is clear. There are no radiopaque foreign bodies. Prevertebral soft tissues are normal. The epiglottis and aryepiglottic folds are normal. IMPRESSION: Clear airway.
--- NOTE | 2020-01-19 00:24 | ER Document Report ---
HPI - HPI Patient complains to provider of: Choked Time Seen by Provider: 01/18/20 23:35 Context: 65-year-old male presents emergency room via EMS choked on a pork chop at his [facility] earlier today. Patient states that the Heimlich maneuver was performed and they were able to remove the piece of pork chop. He has not attempted to eat or drink anything since. Was sent to the emergency room for further evaluation. He offers no concerns or complaints at this time. Associated Symptoms: None Exacerbated by: Denies Relieved by: Denies Similar symptoms previously: Yes Recently seen / treated by doctor: No - ROS Systems Reviewed and Negative: Yes All other systems reviewed and negative - EENT EENT: DENIES: Sore Throat - CARDIOVASCULAR Cardiovascular: DENIES: Chest pain - RESPIRATORY Respiratory: DENIES: Trouble Breathing - GASTROINTESTINAL Gastrointestinal: DENIES: Abdominal Pain, Nausea - REPRODUCTIVE Reproductive: DENIES: : - DERM Skin Color: Normal Past Medical History - General Information source: Patient - Social History Smoking Status: Former Smoker Frequency of alcohol use: None Family History: Reviewed & Not Pertinent, Other - unknown - Past Medical History Cardiac Medical History: Reports: Hx Atrial Fibrillation, Hx Hypertension - Low BP Pulmonary Medical History: Denies: Hx Tuberculosis Neurological Medical History: Reports: Hx Seizures Endocrine Medical History: Denies: Hx Graves' Disease, Hx Hyperthyroidism, Hx Hypothyroidism Renal/ Medical History: Reports: Hx Benign Prostatic Hyperplasia. Denies: Hx Peritoneal Dialysis GI Medical History: Reports: Hx Gastroesophageal Reflux Disease Musculoskeletal Medical History: Denies Hx Systemic Lupus Erythematosus Psychiatric Medical History: Reports: Hx Depression, Hx Schizoaffective Disorder, Hx Schizophrenia Past Surgical History: Denies: Hx Pacemaker - Immunizations Hx Diphtheria, Pertussis, Tetanus Vaccination: Yes Hx Pneumococcal Vaccination: 06/13/11 Vertical Provider Document - CONSTITUTIONAL Agree With Documented VS: Yes Exam Limitations: Physical Impairment General Appearance: No Apparent Distress - INFECTION CONTROL TRAVEL OUTSIDE OF THE [place] IN LAST 30 DAYS: No - HEENT HEENT: Atraumatic, Normocephalic - NECK Neck: Normal Inspection, Supple - RESPIRATORY Respiratory: Breath Sounds Normal, No Respiratory Distress, Chest Non-Tender - CARDIOVASCULAR Cardiovascular: Regular Rate, Regular Rhythm, No Murmur - GI/ABDOMEN Gastrointestinal: Abdomen Soft, Abdomen Non-Tender - NEURO Level of Consciousness: Awake, Alert, Appropriate - DERM Integumentary: Warm, Dry, No Rash Course - Re-evaluation Re-evalutation: 01/19/20 00:22 Reviewed x-ray results with patient. Patient is able to tolerate p.o. fluids a nd food without difficulty. Aware that there were no additional foreign bodies noted on xray. Patient is stable to be discharged back to the [facility]. Follow-up with primary care physician as needed. Patient was given strict return to the emergency room guidelines. Return for any new or worsening symptoms. All questions were answered. Patient verbalized understanding and agrees with plan of care. 01/19/20 00:55 - Vital Signs Vital signs: Temp Pulse Resp BP Pulse Ox 97.9 F 86 18 111/67 94 01/18/20 18:47 01/18/20 18:47 01/18/20 18:47 01/18/20 18:47 01/18/20 18:47 - Diagnostic Test Radiology reviewed: Reports reviewed Discharge - Discharge Clinical Impression: Choking episode Condition: Stable Disposition: HOME, SELF-CARE Instructions: Esophageal Foreign Object Removal ([facility]) Additional Instructions: Eat smaller bites of food. Outpatient follow-up with primary care physician as needed. Return to the emergency room for any new or worsening symptoms.
[2020-01-19 00:35] VITALS: BP 138/78
== END 2020-01-19 00:30 | disposition home or self-care (01) ==
LOC: ER 18:37
DX: T17.928A Food in respiratory tract, part unspecified causing other injury, initial encounter (principal); X58.XXXA Exposure to other specified factors, initial encounter; Y93.89 Activity, other specified; Y92.129 Unspecified place in nursing home as the place of occurrence of the external cause; Z87.891 Personal history of nicotine dependence
CPT/HCPCS: 70360; 99284